=== PATIENT | male | born 1970 | race Caucasian/White ===

== ENCOUNTER 2017-11-20 08:54 | Outpatient (CLI) | payer MEDICARE ==
--- NOTE | 2017-11-20 12:21 | CT ---
NONCONTRAST ENHANCED CT IMAGES OF THE ABDOMEN AND PELVIS: History: Mass like protrusion, right mid sternum. Oral contrast was given. IV contrast was not given. Patient has a history of heart transplant in June 2016. FINDINGS: The lung bases are unremarkable. No evidence of free intraperitoneal air is seen. A left inguinal hernia is seen. The liver and spleen are unremarkable. Areas of hyperdensity seen in the gallbladder compatible with gallstones. No dilated loops of small bowel seen. The colon contains a moderate amount of stool without evidence of obstruction. NO definite evidence of intraabdominal mass lesions seen. There is some intraperitoneal fat extending into the substernal region of the mid anterior abdominal wall. Nonobstructing 2 mm upper and lower pole left renal calculi are present. IMPRESSION: 1. Small gallstones noted. 2. Left inguinal hernia. 3. No other significant intraabdominal or pelvic abnormality seen. 4. 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 POS: [facility]
== END 2017-11-20 08:55 | disposition home or self-care (01) ==
LOC: SCSCT 08:54
PROVIDERS: ATTEND Surgery
DX: R19.00 Intra-abdominal and pelvic swelling, mass and lump, unspecified site (principal); K80.80 Other cholelithiasis without obstruction; K40.90 Unilateral inguinal hernia, without obstruction or gangrene, not specified as recurrent
CPT/HCPCS: 74176

== ENCOUNTER 2018-01-25 04:40 | Emergency (ER) | payer MEDICARE ==
[2018-01-25 05:31] LABS: Bilirubin Negative (Negative); Blood, Urine Negative (Negative); Clarity Clear (Clear); Glucose, Urine (Dipstick) Negative (Negative); Leukocyte Negative (Negative); Nitrite Negative (Negative); Protein, Urine (Dipstick) Negative (Neg-Trace); Urobilinogen 0.2 mg/dL (0.2-1.0); pH, Urine 5.5 (5.0-9.0)
[2018-01-25 05:32] LABS: Specific Gravity, Urine 1.028 (1.002-1.036)
[2018-01-25 05:37] LABS: #Basophils 0.1 thou/uL (0.0-0.2); #Eosinphils 0.1 thou/uL (0.0-0.7); #Lymphocytes 0.7 thou/uL (1.20-3.40); #Monocytes 0.4 thou/uL (0.11-0.59); %Basophils 0.9 % (0.0-1.0); %Eosinophils 1.1 % (0.0-10.0); %Monocytes 4.9 % (0.0-10.0); %Neutrophils 84.2 % (42.0-75.0); Hemoglobin 15.9 g/dL (14.0-18.0); Mean Corpuscular HGB CONC 35.7 g/dL (32.0-36.0); Mean Corpuscular Hemoglobin 31.2 pg (27.0-31.0); Mean Corpuscular Volume 87.4 fL (78.0-98.0); Mean Platelet Volume 8.8 fL (7.4-10.4); Platelet Count 143 thou/uL (130-400); RBC Distribution Width 11.4 % (11.5-14.5); Red Blood Cell (RBC) Count 5.09 mill/uL (4.70-6.10); White Blood Cell (WBC) Count 8.3 thou/uL (4.8-10.8)
[2018-01-25 05:48] LABS: ALT (SGPT) 27 U/L (8-55); AST (SGOT) 21 U/L (5-34); Alkaline Phosphatase 139 U/L (40-150); Anion Gap 11 mmol/L (10-20); BUN (Urea Nitrogen) 15 mg/dL (8.9-20.6); Bilirubin, Total 0.7 mg/dL (0.2-1.2); Calc. Creatinine Clearance 0 mL/min (70-130); Calcium 9.5 mg/dL (7.8-10.44); Carbon Dioxide 24 mmol/L (22-29); Chloride 109 mmol/L (98-107); Estimated GFR-MDRD 84; Globulin 2.4 g/dL (2.4-3.5); Glucose 107 mg/dL (70-105); Potassium 3.7 mmol/L (3.5-5.1); Protein, Total 6.4 g/dL (6.0-8.3); Sodium 140 mmol/L (136-145)
--- NOTE | 2018-01-25 07:45 | RAD ---
TWO VIEWS OF THE CHEST: DATE: 01/25/18. COMPARISON: 01/07/09. HISTORY: Sore throat, ear pain, nasal congestion, and cough. FINDINGS: Midline sternotomy wires are present. There is no pneumothorax or pleural fluid and no focal consoli dation or alveolar edema. IMPRESSION: No acute findings. POS: [facility]
== END 2018-01-25 06:25 | disposition home or self-care (01) ==
LOC: SCSER 04:40
DX: R05 Cough (principal); R09.81 Nasal congestion; E78.5 Hyperlipidemia, unspecified; I42.9 Cardiomyopathy, unspecified; I10 Essential (primary) hypertension; M10.9 Gout, unspecified; J45.909 Unspecified asthma, uncomplicated; F41.9 Anxiety disorder, unspecified; F31.9 Bipolar disorder, unspecified; Z87.891 Personal history of nicotine dependence; Z79.899 Other long term (current) drug therapy
CPT/HCPCS: 71046; 80053; 81003; 85025; 87070; 87205; 87804; 93005

== ENCOUNTER 2018-05-16 08:25 | Emergency (ER) | payer MEDICARE | END 2018-05-16 09:00 | disposition home or self-care (01) | LOC: SCSER 08:25 | DX: L25.9 Unspecified contact dermatitis, unspecified cause (principal); E78.5 Hyperlipidemia, unspecified; I11.0 Hypertensive heart disease with heart failure; I50.9 Heart failure, unspecified; J45.909 Unspecified asthma, uncomplicated; F31.9 Bipolar disorder, unspecified; F41.9 Anxiety disorder, unspecified; Z87.891 Personal history of nicotine dependence; Z79.899 Other long term (current) drug therapy; Z79.82 Long term (current) use of aspirin | CPT/HCPCS: 99282 ==

== ENCOUNTER 2018-09-06 12:54 | Emergency (ER) | payer MEDICARE, OTHER | END 2018-09-06 13:25 | disposition home or self-care (01) | LOC: SCSER 12:54 | DX: S61.253A Open bite of left middle finger without damage to nail, initial encounter (principal); S61.255A Open bite of left ring finger without damage to nail, initial encounter; I11.0 Hypertensive heart disease with heart failure; I50.9 Heart failure, unspecified; M10.9 Gout, unspecified; J45.909 Unspecified asthma, uncomplicated; F41.9 Anxiety disorder, unspecified; F31.9 Bipolar disorder, unspecified; Z87.891 Personal history of nicotine dependence; W54.0XXA Bitten by dog, initial encounter | CPT/HCPCS: 99283 ==

== ENCOUNTER 2018-09-14 10:49 | Emergency (ER) | payer MEDICARE, OTHER | END 2018-09-14 12:14 | disposition home or self-care (01) | LOC: SCSER 10:49 | DX: S61.253D Open bite of left middle finger without damage to nail, subsequent encounter (principal); I11.0 Hypertensive heart disease with heart failure; I50.9 Heart failure, unspecified; M10.9 Gout, unspecified; J45.909 Unspecified asthma, uncomplicated; K58.9 Irritable bowel syndrome, unspecified; F41.9 Anxiety disorder, unspecified; F31.9 Bipolar disorder, unspecified; F17.220 Nicotine dependence, chewing tobacco, uncomplicated; W54.0XXD Bitten by dog, subsequent encounter | CPT/HCPCS: 99283 ==

== ENCOUNTER 2018-12-05 11:56 | Observation (INO) | payer MEDICARE, OTHER ==
[2018-12-05 12:59] LABS: #Basophils 0.1 thou/uL (0.0-0.2); #Eosinphils 0.2 thou/uL (0.0-0.7); #Lymphocytes 1.1 thou/uL (1.20-3.40); #Monocytes 0.5 thou/uL (0.11-0.59); #Neutrophils 3.6 thou/uL (1.40-6.50); %Eosinophils 3.8 % (0.0-10.0); %Lymphocytes 19.8 % (21.0-51.0); %Monocytes 8.5 % (0.0-10.0); %Neutrophils 65.9 % (42.0-75.0); Hemoglobin 14.6 g/dL (14.0-18.0); Mean Corpuscular HGB CONC 33.2 g/dL (32.0-36.0); Mean Corpuscular Hemoglobin 28.5 pg (27.0-31.0); Mean Corpuscular Volume 85.7 fL (78.0-98.0); Mean Platelet Volume 7.9 fL (7.4-10.4); Platelet Count 203 thou/uL (130-400); RBC Distribution Width 11.3 % (11.5-14.5); Red Blood Cell (RBC) Count 5.12 mill/uL (4.70-6.10); White Blood Cell (WBC) Count 5.4 thou/uL (4.8-10.8)
[2018-12-05 13:09] LABS: ALT (SGPT) 52 U/L (8-55); AST (SGOT) 32 U/L (5-34); Albumin 3.9 g/dL (3.5-5.0); Alkaline Phosphatase 194 U/L (40-150); Anion Gap 11 mmol/L (10-20); BUN (Urea Nitrogen) 13 mg/dL (8.9-20.6); Bilirubin, Total 0.4 mg/dL (0.2-1.2); Calc. Creatinine Clearance 0 mL/min (70-130); Calcium 9.1 mg/dL (7.8-10.44); Carbon Dioxide 24 mmol/L (22-29); Chloride 109 mmol/L (98-107); Estimated GFR-MDRD 84; Globulin 2.8 g/dL (2.4-3.5); Glucose 96 mg/dL (70-105); Potassium 4.3 mmol/L (3.5-5.1); Protein, Total 6.7 g/dL (6.0-8.3); Sodium 140 mmol/L (136-145)
[2018-12-05] MEDS ORDERED: Clindamycin/D5W 900 mg/50 ml Premix Bag ONE (13:13)
[2018-12-05] MEDS ORDERED: Piperacillin/Tazobactam 4.5 GM VIAL ONE (14:09)
[2018-12-05] MEDS ORDERED: Sodium Chloride 0.9% 100 ML ONE (14:10)
[2018-12-05] MEDS ORDERED: Ondansetron ODT 4 MG TAB SL PRN (15:49)
[2018-12-05] MEDS ORDERED: Ondansetron PF 4 MG/2 ML Vial IVP PRN (15:49)
[2018-12-05] MEDS ORDERED: HYDROcodone/Acetaminophen 5/325 mg Tablet PO PRN ×2 (15:49)
[2018-12-05] MEDS ORDERED: Vancomycin HCl 1.25 GM in Sodium Chloride 0.9% 250 ML 250 ML IVPB SCH (16:00)
[2018-12-05 16:06] VITALS: BMI 29.6
[2018-12-05] MEDS ORDERED: Niacin 500 MG TAB PO SCH (17:45)
[2018-12-05] MEDS ORDERED: Magnesium Chloride 64 MG TAB PO SCH (17:45)
[2018-12-05] MEDS ORDERED: Calcium Carbonate + Vit D 1 TAB PO SCH (17:45)
--- NOTE | 2018-12-05 18:26 | PDOC.FPRHP ---
- History of Present Illness Chief Complaint: R. below knee infection History of Present Illness: 48 yo Caucasion M comes in with R. below knee infection. States he bumped or possibly cut right below his R. knee 3-4 days ago. Says he noticed some redness and swelling. States he has just been watching it. He was already taking penicillin abx for a tooth infection but states it never got better. Noticed it being hot to the touch. Denies any fever or chills. Denies any n/v/d/c. Pt reports having hx of gout and getting in the knees but reports this is different. Pt came in because he had heart transplant a few years ago and didn' t want anything to effect his heart. - Allergies/Adverse Reactions Allergies Allergy/AdvReac Type Severity Reaction Status Date / Time iodine Allergy Severe ITCHING, Verified 12/05/18 16:13 THROAT SWELLING Sulfa (Sulfonamide Allergy Severe RASH, Verified 12/05/18 16:13 Antibiotics) THROAT SWELLING - Home Medications Medication Instructions Recorded Confirmed Type Aspirin [Aspirin EC] 81 mg PO DAILY 01/08/15 12/05/18 History FLUoxetine HCl 80 mg PO DAILY 01/08/15 12/05/18 History Atorvastatin Calcium 80 mg PO QPM 05/21/15 12/05/18 History Alendronate Sodium 1 tab PO Q7DAYS 12/05/18 12/05/18 History Allopurinol 1 tab PO DAILY 12/05/18 12/05/18 History Calcium Citrate/Vitamin D3 1 each PO BID- 12/05/18 12/05/18 History [Calcium Cit 315-Vit D3 200 Cpt] Magnesium Chloride [Slow-Mag] 2 tab PO BID- 12/05/18 12/05/18 History Niacinamide [Niacin] 500 mg PO BID- 12/05/18 12/05/18 History OXcarbazepine [Oxcarbazepine] 0.5 tab PO BID 12/05/18 12/05/18 History Pantoprazole [Protonix] 40 mg PO DAILY 12/05/18 12/05/18 History Sirolimus 2 tab PO DAILY 12/05/18 12/05/18 History Tacrolimus [Prograf] 2 cap PO QAM 12/05/18 12/05/18 History Tacrolimus [Prograf] 3 cap PO QPM 12/05/18 12/05/18 History - History PMHx: Depression, HLD, HTN, Asthma, Gout, Heart Transplant recipient on immunosuppresion PSHx: Heart Transplant (2017), Past heart surgeries related to old heart due to CHF FHx: Dad- CHF, ESRD Social: Quit smoking 10 yrs ago, smoked 1ppd for 10 years. Denies any recent alcohol use. Denies any illicit drug use - Review of Systems General: denies: fever/chills, weight/appetite/sleep changes, night sweats, fatigue Eyes: denies: vision changes ENT: denies: nasal congestion, rhinorrhea Respiratory: denies: cough, shortness of breath, exercise intolerance Cardiovascular: denies: chest pain, palpitation, edema, orthopnea Gastrointestinal: denies: nausea, vomiting, diarrhea, constipation, abdominal pain Genitourinary: denies: dysuria, polyuria Skin: reports: rashes, lesions. denies: itching Musculoskeletal: reports: pain, swelling. denies: tenderness, stiffness Neurological: denies: numbness, weakness Psychological: reports: depression. denies: anxiety - Vital signs BP: [128/83] HR: [82] RR: [14] Tmax: [98] Pox: [97]% on [RA] Wt: [88 kg] - Physical Exam Constitutional: NAD, awake, alert and oriented, well developed HEENT: normocephalic and atraumatic, grossly normal vision, grossly normal hearing, MMM Neck: supple, no LAD, no JVD, no thyromegaly Heart: RRR, normal S1/S2, no murmurs/rubs/gallops, pulses present, no edema Lungs: CTAB, no respiratory distress, good air movement, no wheezing, no retractions Abdomen: soft, non-tender, bowel sounds present, no masses/distention Musculoskeletal: normal structure, normal tone, ROM grossly normal Neurological: no focal deficit, normal sensation -Skin: Small red sit on lateral R LE right below the knee. It is mildly swollen and hot to the touch. Mildly painful to palpation. Area marked with marking pen and no sign of spread at this time. Heme/Lymphatic: no unusual bruising or bleeding, no petechia Psychiatric: normal mood and affect, good judgment and insight FMR H&P: Results - Labs Result Diagrams: 12/06/18 04:51 12/05/18 12:50 Lab results: WBC 5.4 thou/uL (4.8-10.8) 12/05/18 12:50 Hgb 14.6 g/dL (14.0-18.0) 12/05/18 12:50 Hct 43.9 % (42.0-52.0) 12/05/18 12:50 MCV 85.7 fL (78.0-98.0) 12/05/18 12:50 Plt Count 203 thou/uL (130-400) 12/05/18 12:50 Neutrophils % 65.9 % (42.0-75.0) 12/05/18 12:50 Sodium 140 mmol/L (136-145) 12/05/18 12:50 Potassium 4.3 mmol/L (3.5-5.1) 12/05/18 12:50 Chloride 109 mmol/L (98-107) H 12/05/18 12:50 Carbon Dioxide 24 mmol/L (22-29) 12/05/18 12:50 BUN 13 mg/dL (8.9-20.6) 12/05/18 12:50 Creatinine 0.95 mg/dL (0.7-1.3) 12/05/18 12:50 Glucose 96 mg/dL (70-105) 12/05/18 12:50 Lactic Acid 1.1 mmol/L (0.5-2.2) 12/05/18 12:50 Calcium 9.1 mg/dL (7.8-10.44) 12/05/18 12:50 Total Bilirubin 0.4 mg/dL (0.2-1.2) 12/05/18 12:50 AST 32 U/L (5-34) 12/05/18 12:50 ALT 52 U/L (8-55) 12/05/18 12:50 Alkaline Phosphatase 194 U/L (40-150) H 12/05/18 12:50 Serum Total Protein 6.7 g/dL (6.0-8.3) 12/05/18 12:50 Albumin 3.9 g/dL (3.5-5.0) 12/05/18 12:50 FMR H&P: A/P - Problem List (1) Cellulitis Current Visit: Yes Status: Acute Code(s): L03.90 - CELLULITIS, UNSPECIFIED Qualifiers: Site of cellulitis: extremity Laterality: right (2) Chronic gouty arthritis Current Visit: No Status: Chronic Code(s): M1A.00X0 - IDIOPATHIC CHRONIC GOUT, UNSPECIFIED SITE, WITHOUT TOPHUS (3) History of - depression Current Visit: No Status: Chronic Code(s): Z86.59 - PERSONAL HISTORY OF OTHER MENTAL AND BEHAVIORAL DISORDERS (4) Heart transplant recipient Current Visit: Yes Status: Chronic Code(s): Z94.1 - HEART TRANSPLANT STATUS - Plan Cellulitis of R. Leg -Continue Vanc and Clindamycin for IV abx coverage at this time. No sign of abscess. -VS stable. CBC normal. Repeat AM CBC. - Site is marked. Will trend to make sure infection not spreading. -Blood cx pending Heart Transplant Recepient -Home immunosupppresion meds continued -On tele monitoring -IV abx for now for infection to help prevent infective endocarditis HLD -continue home meds HTN -continue home meds Hx Gout -continue home meds -Area of swelling not in joint. Does not appear to be gout. DVT ppx: SCD's GERD ppx: Tums FMR H&P: Upper Level - Plan Date/Time: 12/05/18 2063 I, [], have evaluated this patient and agree with findings/plan as outlined by international marketing manager resident. Pertinent changes/additions are listed here. Addendum - Attending - Attending Attestation Date/Time: 12/06/18 1228 I personally evaluated the patient and discussed the management with Dr. Moctezuma on 12/05/2018 I agree with the History, Examination, Assessment and Plan documented above with any addition or exceptions noted below - 48 yo male with h/o HLD, HTN, asthma, gout and heart transplant secondary to cardiomyopathy presents c/o area of redness, pain on left lateral lower leg below knee. States taht he first noticed it about 1 week ago and has progressively increased in size. States that he has been on PCN for tooth infection without improvement in area of redness. Denies any fever/chills/N/V/D. Denies any drainage from area. Does not recall any injury or insect bites to area. PMH/PSH/Meds/All reviewed and agree with resident' s documentation. T98.0 P82 BP128/83 RR14 Exam repeated by me and agree with resident's findings. Labs: WBC=5.4, H/H=14.6/43.9, ki=629, K=4.3 , BUN/Cr=13/0.95 A/P: 1) Cellulitis- Place in obs. Continue Vanc and Clinda. 2) Heart transplant- continue home meds.
[2018-12-05] MEDS ORDERED: Atorvastatin Calcium 40 MG TAB PO SCH (21:00)
[2018-12-05] MEDS ORDERED: Tacrolimus 0.5 MG CAP PO SCH (21:00)
[2018-12-05] MEDS ORDERED: Clindamycin/D5W 900 MG in Premix Bag 1 BAG IVPB SCH (22:00)
[2018-12-05] MEDS ORDERED: Piperacillin/Tazobactam 4.5 GM in Sodium Chloride 0.9% 100 ML IVPB SCH (22:00)
[2018-12-05] MEDS ORDERED: Ibuprofen 800 MG TAB PO PRN (23:16)
[2018-12-05] MEDS: OXcarbazepine 300 MG TAB PO SCH (23:54)
[2018-12-06] MEDS ORDERED: Melatonin 3 MG TAB PO PRN (00:40)
[2018-12-06 05:23] LABS: #Basophils 0.1 thou/uL (0.0-0.2); #Eosinphils 0.3 thou/uL (0.0-0.7); #Lymphocytes 1.4 thou/uL (1.20-3.40); #Monocytes 0.6 thou/uL (0.11-0.59); #Neutrophils 2.7 thou/uL (1.40-6.50); %Basophils 1.2 % (0.0-1.0); %Eosinophils 5.2 % (0.0-10.0); %Lymphocytes 28.5 % (21.0-51.0); %Monocytes 10.9 % (0.0-10.0); %Neutrophils 54.2 % (42.0-75.0); Hemoglobin 15.2 g/dL (14.0-18.0); Mean Corpuscular HGB CONC 33.9 g/dL (32.0-36.0); Mean Corpuscular Hemoglobin 29.5 pg (27.0-31.0); Mean Corpuscular Volume 87.1 fL (78.0-98.0); Mean Platelet Volume 7.9 fL (7.4-10.4); Platelet Count 175 thou/uL (130-400); RBC Distribution Width 11.3 % (11.5-14.5); Red Blood Cell (RBC) Count 5.14 mill/uL (4.70-6.10); White Blood Cell (WBC) Count 5.1 thou/uL (4.8-10.8)
--- NOTE | 2018-12-06 06:04 | PDOC.FM ---
- Subjective Subjective: Pt is much improved this morning. Slept well without any acute events overnight. He states his right leg is much improved, much less warm and less TTP. Still endorses mild pain on hard palpation but able to ambulate without difficulty. He does have history of gout but states this pain is different from his gouty pain. No fevers/chills, CP, SOB, n/v/d/c overnight. He is eager to be discharged home later today. - Objective MAR Reviewed: Yes Vital Signs & Weight: Vital Signs (12 hours) Temp Pulse Resp BP Pulse Ox 12/06/18 04:55 97.6 F 83 20 117/79 94 L 12/06/18 01:22 97.8 F 84 16 125/81 95 12/05/18 19:43 98.3 F 85 16 121/73 94 L Weight Weight 87.589 kg I&O: 12/04/18 12/05/18 12/06/18 06:59 06:59 06:59 Intake Total 942 Balance 942 Result Diagrams: 12/06/18 04:51 12/05/18 12:50 Phys Exam - Physical Examination Constitutional: NAD HEENT: moist MMs Respiratory: no wheezing, no rales, no rhonchi, clear to auscultation bilateral Cardiovascular: RRR, no significant murmur, no rub Gastrointestinal: soft, non-tender, no distention, positive bowel sounds Musculoskeletal: no edema, pulses present Neurological: non-focal, moves all 4 limbs Psychiatric: normal affect Deviation from normal: 2cm area of erythema and mild TTP on right leg below the knee. No exudates -: Area of erythema at admit marked and now significantly reduced. Dx/Plan (1) Cellulitis Code(s): L03.90 - CELLULITIS, UNSPECIFIED Status: Acute Qualifiers: Site of cellulitis: extremity Laterality: right (2) Heart transplant recipient Code(s): Z94.1 - HEART TRANSPLANT STATUS Status: Chronic (3) Chronic gouty arthritis Code(s): M1A.00X0 - IDIOPATHIC CHRONIC GOUT, UNSPECIFIED SITE, WITHOUT TOPHUS Status: Chronic (4) History of - depression Code(s): Z86.59 - PERSONAL HISTORY OF OTHER MENTAL AND BEHAVIORAL DISORDERS Status: Chronic - Plan Plan: 48yo M with h/o cardiac transplant 2/2 CHF who presents with cellulitis of right leg. Cellulitis of R. Leg - Vanc and Clindamycin in ED. No sign of abscess. Will Give Clinda and Vanc dose this AM and then transition to PO Clinda to anticipate afternoon discharge. - VS stable, a febrile. CBC and CMP WNL, WBC stable at 5 - Site is marked. Significantly reduced erythema this morning. Able to ambulate. - Blood cx NGTD Heart Transplant Recepient - Continue Home immunosupppresion meds and ASA. - On tele monitoring, no acute events overnight. HLD - continue home Niacin and Atorva H/o Depression - continue home Prozac and oxcarbazepine Hx Gout - continue home allopurinol - Area of swelling not in joint. Does not appear to be gout. DVT ppx: SCD's GERD ppx: Tums Diet: Code: Full Dispo: Pending clinical improvement and transition to PO anx. Anticipate discharge this PM.
[2018-12-06] MEDS ORDERED: Niacin 500 MG TAB PO SCH (08:00)
[2018-12-06] MEDS ORDERED: Calcium Carbonate + Vit D 1 TAB PO SCH (08:00)
[2018-12-06] MEDS ORDERED: Magnesium Chloride 64 MG TAB PO SCH (08:00)
[2018-12-06] MEDS: OXcarbazepine 300 MG TAB PO SCH (08:25)
[2018-12-06 08:28] LABS: Magnesium 1.9 mg/dL (1.6-2.6)
[2018-12-06] MEDS ORDERED: Vancomycin HCl 1.25 GM in Sodium Chloride 0.9% 250 ML 250 ML IVPB SCH (09:00)
[2018-12-06] MEDS ORDERED: FLUoxetine HCl 20 MG CAP PO SCH (09:00)
[2018-12-06] MEDS ORDERED: Allopurinol 100 MG TAB PO SCH (09:00)
[2018-12-06] MEDS ORDERED: Tacrolimus 0.5 MG CAP PO SCH (09:00)
[2018-12-06] MEDS ORDERED: Clindamycin/D5W 900 MG in Premix Bag 1 BAG IVPB SCH ×2 (09:00→14:00)
[2018-12-06] MEDS ORDERED: Aspirin 81 mg Enteric Coated Tablet PO SCH (09:00)
[2018-12-06] MEDS ORDERED: Clindamycin 150 MG CAP PO SCH (11:00)
--- NOTE | 2018-12-06 11:47 | PRG ---
DATE OF SERVICE: 12/06/2018 Mr. Bernabe is a pleasant 48-year-old man with a history of a heart transplant. He developed mild cellulitis on his right knee and was admitted for IV antibiotics. Already, he has markedly improved and will be discharged on oral medications. Job ID: [id number]
[2018-12-06 13:04] VITALS: BP 126/86; TEMP 97.3
--- NOTE | 2018-12-06 13:36 | DIS ---
DATE OF ADMISSION: 12/05/2018 DATE OF DISCHARGE: 12/06/2018 RESIDENT: Dr. Desmond Murphy. ADMITTING ATTENDING: Dr. Aleida Tyson. DISCHARGE ATTENDING: Dr. Juan Kim. CONSULTS: None. PROCEDURES: None. PRIMARY DIAGNOSIS: Cellulitis of right lower extremity. SECONDARY DIAGNOSES: 1. Status post heart transplant for congestive heart failure. 2. Gout. 3. Hyperlipidemia. 4. Depression. DISCHARGE MEDICATIONS: 1. Clindamycin 300 mg p.o. q.6 hours for 6 days. 2. Prozac 80 mg p.o. daily. 3. Aspirin 81 mg p.o. daily. 4. Atorvastatin 80 mg p.o. q.p.m. 5. Fosamax 70 mg p.o. every 7 days. 6. Allopurinol 100 mg p.o. daily. 7. Oxcarbazepine 150 mg p.o. b.i.d. 8. Protonix 40 mg p.o. daily. 9. Sirolimus 2 mg p.o. daily. 10. Prograf 1.5 mg p.o. q.p.m. and 1 mg p.o. q.a.m. 11. Slow-Mag 64 mg two tabs b.i.d. 12. Calcium and vitamin D supplement 1 tab b.i.d. 13. Niacin 500 mg p.o. b.i.d. DISCONTINUED MEDICATIONS: None. HISTORY OF PRESENT ILLNESS AND HOSPITAL COURSE: The patient is a 48-year-old male with history of heart transplant, who presented with infection of the right leg below the knee. He states that he bumped, possibly cut his leg, but does not remember a specific trauma approximately a week ago as he noticed some redness and swelling and he had been watching it. He said he had been taking penicillin for a dental procedure and thus continued taking the penicillin, but it did not improve his wound. He notes that it was warm to the touch and that the erythema had been spreading. He denied any fevers or chills. No nausea, vomiting, diarrhea, or constipation. The patient does have a known history of gout; however, he states that this pain is different than that. He presented to the ED because he has this history of heart transplant a few years ago and did not want anything to affect his heart. He currently is taking his immunosuppressants as prescribed. In the ED , he was given a dose of Zosyn, vancomycin, and clindamycin. He was then admitted to the floor for evaluation and management primarily due to his cardiac history. Once on the floor, he was continued on vancomycin and clindamycin. Overnight, the patient did well, without any acute events. The patient notes that the warmth had pretty much completely resolved and that the erythema previously demarcated in the ED has substantially receded to an area of approximately 1 to 2 cm below the right knee. The patient was then transitioned to p.o. clindamycin for anticipation of discharge. His Vitals remained stable overnight and throughout the morning. The patient was eager to go home and voiced understanding and agreement of the discharge plan, and to follow up with primary care physician within 1 week. The patient will continue a total of 7-day course of clindamycin as an outpatient. Signs and symptoms warrant to return to the emergency department or to seek further medical care were discussed with the patient. The patient voiced agreement and understanding. The patient was then discharged home. DISCHARGE INSTRUCTIONS: 1. Location, home. 2. Diet, heart healthy. 3. Activity, as tolerated. 4. Followup: The patient should follow up with primary care physician within 1 week of discharge. Job ID: [id number] [facility]
[2018-12-06] MEDS ORDERED: Prevnar 13-Val Conj/PF 0.5 ML SYRINGE IM ONE (16:30)
[2018-12-12] MEDS ORDERED: Alendronate Sodium 70 mg Tablet PO SCH (09:00)
== END 2018-12-06 13:24 | disposition home or self-care (01) ==
LOC: SCSER 11:56 → 2SW 15:35
PROVIDERS: ADMIT Family Medicine; ATTEND Family Medicine
DX: L03.115 Cellulitis of right lower limb (principal); M1A.00X0 Idiopathic chronic gout, unspecified site, without tophus (tophi); F32.9 Major depressive disorder, single episode, unspecified; I10 Essential (primary) hypertension; E78.5 Hyperlipidemia, unspecified; Z79.82 Long term (current) use of aspirin; Z79.899 Other long term (current) drug therapy; Z88.2 Allergy status to sulfonamides; Z91.041 Radiographic dye allergy status; Z94.1 Heart transplant status
CPT/HCPCS: 80053; 83605; 83735; 84100; 85025 ×2; 87040; 87149 ×2; 96361; 96365; 96366; 96367; 96375; 96376; 99284; G0378 ×3; J7520; 36415; J2543; J3370; J3490; J7050; J7507

== ENCOUNTER 2019-01-31 23:16 | Inpatient (IN) | payer MEDICARE, OTHER ==
[2019-01-31] MEDS ORDERED: Ondansetron PF 4 MG/2 ML Vial ONE (23:36)
[2019-01-31] MEDS ORDERED: Morphine 4 MG/ML VIAL ONE (23:36)
[2019-01-31 23:54] LABS: #Basophils 0.1 thou/uL (0.0-0.2); #Eosinphils 0.2 thou/uL (0.0-0.7); #Lymphocytes 1.3 thou/uL (1.20-3.40); #Monocytes 0.8 thou/uL (0.11-0.59); #Neutrophils 5.1 thou/uL (1.40-6.50); %Basophils 1.2 % (0.0-1.0); %Eosinophils 2.2 % (0.0-10.0); %Lymphocytes 17.2 % (21.0-51.0); %Monocytes 10.1 % (0.0-10.0); %Neutrophils 69.3 % (42.0-75.0); Hemoglobin 14.9 g/dL (14.0-18.0); Mean Corpuscular HGB CONC 34.2 g/dL (32.0-36.0); Mean Corpuscular Hemoglobin 28.3 pg (27.0-31.0); Mean Corpuscular Volume 82.8 fL (78.0-98.0); Platelet Count 238 thou/uL (130-400); RBC Distribution Width 12.5 % (11.5-14.5); Red Blood Cell (RBC) Count 5.26 mill/uL (4.70-6.10); White Blood Cell (WBC) Count 7.4 thou/uL (4.8-10.8)
--- NOTE | 2019-02-01 00:02 | CT ---
Exam: Abdomen CT without contrast Pelvic CT without contrast HISTORY: Right upper quadrant pain. COMPARISON: 11/20/2017 FINDINGS: Abdomen CT: Lung bases:Clear Heart size: Normal heart size. No significant pericardial fluid Aorta: Normal caliber. Minimal atherosclerosis. No periaortic fat stranding. Solid organs: Limited evaluation due to the lack of IV contrast. 0.7 cm hypodensity in the posterior segment of the liver, unchanged. Grossly no solid organ abnormality Lymph nodes: No gastrohepatic, retrocrural or periportal lymphadenopathy Gallbladder: Contracted. CT evidence of cholelithiasis without evidence of cholecystitis Mesentery: No mass, lymphadenopathy, free air or free fluid. Scattered nonspecific, nonenlarged lymph nodes. Findings are unchanged from previous CT Kidneys: Punctate nonobstructing 1 mm calculus in the left renal pelvis. Bilaterally no hydronephrosi s or perinephric fat stranding. Bilateral ureters have a normal caliber. No hydroureter, periureteral fat stranding or ureterolithiasis Alimentary canal: Limited evaluation due to lack of oral contrast. No evidence of small bowel obstruc tion. Ileocecal junction is normal. Normal caliber appendix. Scattered fecal material in a nondistended, nondilated colon. Diverticulosis in the proximal descending colon. No evidence of diver ticulitis. CT PELVIS: No mass, adenopathy, free air or free fluid. Urinary bladder: Unremarkable. Stable left inguinal hernia. Osseous structures: Bilateral pars defects at L5. No significant associated spondylolisthesis. IMPRESSION: 1. No evidence of bowel obstruction. 2. Normal caliber appendix 3. No evidence of obstructive uropathy. 4. Contracted gallbladder with small gallstones. No CT evidence of cholecystitis.
[2019-02-01 00:08] LABS: ALT (SGPT) 40 U/L (8-55); AST (SGOT) 28 U/L (5-34); Alkaline Phosphatase 196 U/L (40-110); Anion Gap 13 mmol/L (10-20); BUN (Urea Nitrogen) 15 mg/dL (8.9-20.6); Bilirubin, Total 0.4 mg/dL (0.2-1.2); Calc. Creatinine Clearance 0 mL/min (70-130); Calcium 9.5 mg/dL (7.8-10.44); Carbon Dioxide 25 mmol/L (22-29); Chloride 107 mmol/L (98-107); Estimated GFR-MDRD 77; Globulin 3.3 g/dL (2.4-3.5); Glucose 114 mg/dL (70-105); Lipase 429 U/L (8-78); Potassium 3.9 mmol/L (3.5-5.1); Protein, Total 7.3 g/dL (6.0-8.3); Sodium 141 mmol/L (136-145)
[2019-02-01] MEDS ORDERED: Morphine 4 MG/ML VIAL ONE (01:00)
[2019-02-01 01:56] LABS: Bilirubin Negative (Negative); Blood, Urine Negative (Negative); Clarity Clear (Clear); Glucose, Urine (Dipstick) Negative (Negative); Leukocyte Negative (Negative); Nitrite Negative (Negative); Protein, Urine (Dipstick) Negative (Neg-Trace); Urobilinogen 0.2 mg/dL (Less than 2)
[2019-02-01] MEDS ORDERED: Ondansetron ODT 4 MG TAB SL PRN (02:23)
[2019-02-01] MEDS ORDERED: Sodium Chloride 0.9% 1,000 ML IV SCH (02:23)
[2019-02-01] MEDS ORDERED: Ondansetron PF 4 MG/2 ML Vial IVP PRN (02:23)
[2019-02-01] MEDS ORDERED: Morphine 4 MG/ML VIAL SLOW IVP PRN (02:25)
[2019-02-01 02:47] VITALS: BMI 29.2
[2019-02-01] MEDS ORDERED: Acetaminophen 325 MG TAB PO PRN (03:50)
--- NOTE | 2019-02-01 04:09 | PDOC.FPRHP ---
- History of Present Illness Chief Complaint: abdominal pain History of Present Illness: Patient is a 48M with PMHx of HTN, HLD, gout, colitis, migraines, bipolar, and CHF s/p heart transplant that presented to the [facility] ED after 3-4 days of abdominal pain. The patient describes the pain and sharp, constant, and mid-epigastric. He states that his appetite has decreased the last several days due to the pain, and he has had diarrhea since the pain onset. He also reports emesis that began yesterday. He states that this has never happened to him before. He reports that he was a heavy drinker 10 years ago, but hasn't had a drink or smoked cigarettes since. He denies any cp or sob. ED Course: Received 4mg morphine x 2, zofran, NS x 2 - Allergies/Adverse Reactions Allergies Allergy/AdvReac Type Severity Reaction Status Date / Time iodine Allergy Severe ITCHING, Verified 02/01/19 02:29 THROAT SWELLING Sulfa (Sulfonamide Allergy Severe RASH, Verified 02/01/19 02:29 Antibiotics) THROAT SWELLING - Home Medications Medication Instructions Recorded Confirmed Type Aspirin [Aspirin EC] 81 mg PO DAILY 01/08/15 02/01/19 History FLUoxetine HCl 80 mg PO DAILY 01/08/15 02/01/19 History Atorvastatin Calcium 80 mg PO QPM 05/21/15 02/01/19 History Alendronate Sodium 1 tab PO Q7DAYS 12/05/18 02/01/19 History Allopurinol 1 tab PO DAILY 12/05/18 02/01/19 History Calcium Citrate/Vitamin D3 1 each PO BID- 12/05/18 02/01/19 History [Calcium Cit 315-Vit D3 200 Cpt] Magnesium Chloride [Slow-Mag] 2 tab PO BID- 12/05/18 02/01/19 History Niacinamide [Niacin] 500 mg PO BID- 12/05/18 02/01/19 History OXcarbazepine [Oxcarbazepine] 0.5 tab PO BID 12/05/18 02/01/19 History Pantoprazole [Protonix] 40 mg PO DAILY 12/05/18 02/01/19 History Sirolimus 2 tab PO DAILY 12/05/18 02/01/19 History Tacrolimus [Prograf] 2 cap PO BID 12/05/18 02/01/19 History Famotidine [Pepcid AC] 10 mg PO QID PRN 02/01/19 02/01/19 History Multivitamin [Multivitamins] 1 cap PO DAILY 02/01/19 02/01/19 History Potassium Chloride [K-Tab ER] 20 meq PO DAILY 02/01/19 02/01/19 History - History PMHx:PMHx of HTN, HLD, gout, colitis, migraines, bipolar, and CHF s/p heart transplant PSHx: heart transplant 2 years ago FHx: non-contributory Social: heavy drinker and smoker up until 10 years ago, when he quit; denies drug use - Review of Systems General: reports: weight/appetite/sleep changes. denies: night sweats Eyes: denies: eye pain, vision changes ENT: denies: nasal congestion, rhinorrhea Respiratory: denies: cough, congestion, shortness of breath Cardiovascular: denies: chest pain, palpitation Gastrointestinal: reports: nausea, vomiting, diarrhea, abdominal pain Genitourinary: denies: incontinence, dysuria Skin: denies: rashes, lesions Musculoskeletal: denies: pain, tenderness Neurological: denies: syncope, seizure Psychological: denies: anxiety, depression - Vital signs BP: [136/87] HR: [84] RR: [16] Tmax: [97.9] Pox: [95]% on [RA] Wt: [87.18kg] - Physical Exam Constitutional: NAD, awake, alert and oriented HEENT: no scleral icterus, grossly normal hearing Neck: supple, trachea midline Chest: no-tender to palpation, no lesions Heart: RRR, normal S1/S2 Lungs: CTAB, no respiratory distress, good air movement Abdomen: bowel sounds present, other (distended, difusely ttp) Musculoskeletal: normal structure, normal tone Neurological: no focal deficit, normal sensation Skin: no rash/lesions, good turgor Heme/Lymphatic: no unusual bruising or bleeding, no purpura Psychiatric: normal mood and affect, good judgment and insight FMR H&P: Results - Labs Result Diagrams: 02/01/19 04:12 02/01/19 04:12 Lab results: WBC 7.4 thou/uL (4.8-10.8) 01/31/19 23:41 Hgb 14.9 g/dL (14.0-18.0) 01/31/19 23:41 Hct 43.5 % (42.0-52.0) 01/31/19 23:41 MCV 82.8 fL (78.0-98.0) 01/31/19 23:41 Plt Count 238 thou/uL (130-400) 01/31/19 23:41 Neutrophils % 69.3 % (42.0-75.0) 01/31/19 23:41 Sodium 141 mmol/L (136-145) 01/31/19 23:41 Potassium 3.9 mmol/L (3.5-5.1) 01/31/19 23:41 Chloride 107 mmol/L (98-107) 01/31/19 23:41 Carbon Dioxide 25 mmol/L (22-29) 01/31/19 23:41 BUN 15 mg/dL (8.9-20.6) 01/31/19 23:41 Creatinine 1.03 mg/dL (0.7-1.3) 01/31/19 23:41 Glucose 114 mg/dL (70-105) H 01/31/19 23:41 Calcium 9.5 mg/dL (7.8-10.44) 01/31/19 23:41 Total Bilirubin 0.4 mg/dL (0.2-1.2) 01/31/19 23:41 AST 28 U/L (5-34) 01/31/19 23:41 ALT 40 U/L (8-55) 01/31/19 23:41 Alkaline Phosphatase 196 U/L (40-110) H 01/31/19 23:41 Serum Total Protein 7.3 g/dL (6.0-8.3) 01/31/19 23:41 Albumin 4.0 g/dL (3.5-5.0) 01/31/19 23:41 Lipase 429 U/L (8-78) H 01/31/19 23:41 Urine Ketones Negative mg/dL (Negative) 02/01/19 01:47 Urine Blood Negative (Negative) 02/01/19 01:47 Urine Nitrite Negative (Negative) 02/01/19 01:47 Ur Leukocyte Esterase Negative (Negative) 02/01/19 01:47 - Radiology Interpretation CT scan - abdomen Status: report reviewed by me (no evidence of bowel obstruction, normal caliber appendix, no evidence of obstructive uropathy, contracted gallbladder with small gallstones. No CT evidence of cholecystitis) FMR H&P: A/P - Problem List (1) Pancreatitis Current Visit: Yes Status: Acute Code(s): K85.90 - ACUTE PANCREATITIS WITHOUT NECROSIS OR INFECTION, UNSP (2) Bipolar disorder Current Visit: No Status: Chronic Code(s): F31.9 - BIPOLAR DISORDER, UNSPECIFIED (3) Chronic gouty arthritis Current Visit: No Status: Chronic Code(s): M1A.00X0 - IDIOPATHIC CHRONIC GOUT, UNSPECIFIED SITE, WITHOUT TOPHUS (4) Heart transplant recipient Current Visit: No Status: Chronic Code(s): Z94.1 - HEART TRANSPLANT STATUS (5) Systolic heart failure Current Visit: No Status: Chronic Priority: High Code(s): I50.20 - UNSPECIFIED SYSTOLIC (CONGESTIVE) HEART FAILURE Comment: Stopped BB, ACEI and diuretics - Plan Patient is a 48M with PMHx of HTN, HLD, gout, colitis, migraines, bipolar, and CHF s/p heart transplant that is being admitted for pancreatitis. #Pancreatitis -Lipase 429, continue to monitor -CT abdomen shows small stones in the gallbladder, not suspicious for cholecystitis -kenn score 0 -abdominal u/s pending -sx consult in -NPO, IVF -morphine for pain control #CHF s/p heart transplant -stable -denying cp or sob at this time -continue home meds #bipolar -stable, chronic -continue home meds #gout -stable, chronic -continue home meds #HTN -continue home meds #HLD -continue home meds Diet: NPO DVT ppx: lovenox Dispo: inpatient for pancreatitis management Code: Full FMR H&P: Upper Level - Pertinent history 48 yo M here as direct admit from [facility] ER with complaint of epigastric pain that has progressively worsened over the past 3-4 days. He has no hx of similar pain in the past. Pain is described as stabbing and without radiation. Pain is made worse by eating. Associated symptoms include non bloody vomiting and diarrhea. Imaging in the ED include a CT abd that found a contracted GB with stones. RUQ US read is currently pending. Labs included an elevated lipase and alk phos. Other significant medical hx includes heart transplant due to CHF apprx 2.5 years ago. PMHx GERD HTN s/p heart transplant Gout HLD MDD Questionable dx of BPD/schizophrenia Past surgical hx Heart transplant 06/2016 Social Hx Former smoker and etoh abuse Denies recreational drugs - Pertinent findings See risk intern note for full ROS, PE, vitals, and labs ROS General Denies fever or chills CV Denies CP or palpitation Resp Denies of SOB or cough GI Complains of abdominal pain and n/v/d. Denies blood in stool or vomit PE General A&O x4 HEENT NCAT, PERRLA CV RRR no murmur Resp CTA Abd epigastric tenderness. Normal BS x4 Neuro No focal deficits, normal strength - Plan Date/Time: 02/01/19 0409 I, Nicola Escalera, , have evaluated this patient and agree with findings/plan as outlined by risk intern resident. Pertinent changes/additions are listed here. 1.Pancreatitis -IVF at maintenance rate -IV Morphine PRN -NPO -Possibly related to gall stone pancreatitis. RUQ US pending. GS was consulted from ER. -BISAP score of 0/RANSONS score of 0, LDH pending 2.HTN -Home meds 3.Hx of heart transplant -Continue anti rejection meds 4.MDD -Home meds 5.BPD/schizophrenia -Per pt he has this dx, however he is not on a mood stabilizer or antipsychotic and is on SSRI which would be inconsistent with this dx. See risk intern note for management of other chronic problems PPx SCD Diet NPO Code Full Addendum - Attending - Attending Attestation Date/Time: 02/01/19 1027 I personally evaluated the patient and discussed the management with Dr. Vernon/ Lali. I agree with the History, Examination, Assessment and Plan documented above with any addition or exceptions noted below. Patient here with several days of abdominal pain characteristic of pancreatitis and lipase elevation suggestive of that diagnosis. His BISAP score is 0. He will continue on IV fluids and NPO, will escalate to CLD depending on symptoms later today. Surgery consulted by ED due to gallbladder abnormalities which could have resulted in his pancreatitis. He appears to be adequately fluid resuscitated. Await recs from surgery but overall treat as standard mild pancreatitis.
[2019-02-01 04:37] LABS: #Eosinphils 0.2 thou/uL (0.0-0.7); #Lymphocytes 1.3 thou/uL (1.20-3.40); #Monocytes 0.7 thou/uL (0.11-0.59); #Neutrophils 4.7 thou/uL (1.40-6.50); %Basophils 0.2 % (0.0-1.0); %Eosinophils 2.3 % (0.0-10.0); %Lymphocytes 18.5 % (21.0-51.0); Mean Corpuscular HGB CONC 34.5 g/dL (32.0-36.0); Mean Corpuscular Hemoglobin 29.3 pg (27.0-31.0); Mean Corpuscular Volume 84.9 fL (78.0-98.0); Mean Platelet Volume 7.7 fL (7.4-10.4); Platelet Count 202 thou/uL (130-400); RBC Distribution Width 12.3 % (11.5-14.5); Red Blood Cell (RBC) Count 4.78 mill/uL (4.70-6.10); White Blood Cell (WBC) Count 6.9 thou/uL (4.8-10.8)
[2019-02-01 05:00] LABS: Anion Gap 10 mmol/L (10-20); BUN (Urea Nitrogen) 12 mg/dL (8.9-20.6); Calc. Creatinine Clearance 124 mL/min (70-130); Calcium 8.6 mg/dL (7.8-10.44); Carbon Dioxide 26 mmol/L (22-29); Chloride 107 mmol/L (98-107); Estimated GFR-MDRD Greater than 90; Glucose 109 mg/dL (70-105); Lipase 266 U/L (8-78); Potassium 3.9 mmol/L (3.5-5.1); Sodium 139 mmol/L (136-145)
[2019-02-01] MEDS ORDERED: Famotidine 20 MG TAB PO PRN (05:07)
[2019-02-01] MEDS: Lactated Ringer's 1,000 ML IV SCH ×2 (05:18→12:23)
[2019-02-01] MEDS ORDERED: Morphine 2 MG/ML SYRINGE SLOW IVP PRN (07:10)
--- NOTE | 2019-02-01 07:49 | ULT ---
PRELIMINARY REPORT/[facility]/EMERGENCY AFTER HOURS PROCEDURE: PROCEDURE INFORMATION: Exam: US Abdomen Limited, Right Upper Quadrant Exam date and time: 02/01/2019 1:20 AM Clinical history: 48 years old, male; Nausea and vomiting and other: Diarrhea; Abdominal pain; Epigas tric TECHNIQUE: Imaging protocol: Real-time ultrasound of the abdomen with image documentation. Examination was focus ed on the right upper quadrant. COMPARISON: No relevant prior studies available. FINDINGS: Liver: Normal. No masses. Gallbladder: Cholelithiasis. No gallbladder wall thickening or pericholecystic fluid. Common bile duct: Normal. No stones. No dilation. Pancreas: Visualized pancreas is unremarkable. Right kidney: Normal. No mass. No hydronephrosis. IMPRESSION: Cholelithiasis. No cholecystitis. Thank you for allowing us to participate in the care of your patient. Dictated and Authenticated by: Chris Chin MD 02/01/2019 2:26 AM Central Time ([place] & [place]) FINAL REPORT EMERGENCY AFTER HOURS GALLBLADDER ULTRASOUND: I agree with the preliminary report provided by Rakan. POS: BH
[2019-02-01] MEDS ORDERED: Enoxaparin Sodium 40 MG/0.4 ML SYRINGE SC SCH (09:00)
[2019-02-01] MEDS ORDERED: Alendronate Sodium 70 mg Tablet PO SCH (09:00)
[2019-02-01 09:28] LABS: Cardiac Risk 3.5 (Less than 4.5)
[2019-02-01] MEDS ORDERED: Ondansetron PF 4 MG/2 ML Vial ONE ×2 (09:35→17:23)
[2019-02-01] MEDS ORDERED: Glycopyrrolate 0.2 MG/ML 5 ML SYRINGE ONE ×2 (09:35→17:23)
[2019-02-01] MEDS ORDERED: Rocuronium Bromide 10 MG/ML (10ML VIAL) ONE ×2 (09:35→17:23)
[2019-02-01] MEDS ORDERED: PROPOFOL 200 MG/20 ML VIAL ONE (09:35)
[2019-02-01] MEDS ORDERED: Lidocaine 1% PF 5 ML VIAL ONE (09:35)
[2019-02-01] MEDS: Calcium Carbonate + Vit D 1 TAB PO SCH ×2 (09:45→17:23)
[2019-02-01] MEDS: Aspirin 81 mg Enteric Coated Tablet PO SCH (09:46)
[2019-02-01] MEDS: Multivitamin W/ Minerals 1 TAB PO SCH (09:46)
[2019-02-01] MEDS: Magnesium Chloride 64 MG TAB PO SCH ×2 (09:46→17:28)
[2019-02-01] MEDS: Niacin 500 MG TAB PO SCH ×2 (09:46→17:28)
[2019-02-01] MEDS: FLUoxetine HCl 20 MG CAP PO SCH (09:46)
[2019-02-01] MEDS: Allopurinol 100 MG TAB PO SCH (09:46)
[2019-02-01] MEDS: Tacrolimus 0.5 MG CAP PO SCH ×2 (09:47→20:16)
[2019-02-01] MEDS: OXcarbazepine 300 MG TAB PO SCH ×2 (09:47→20:16)
[2019-02-01] MEDS: Potassium Chloride 20 MEQ TAB PO SCH (09:47)
[2019-02-01] MEDS ORDERED: Ketorolac Tromethamine 30 MG/ML VIAL IVP PRN (12:59)
[2019-02-01] MEDS ORDERED: Acetaminophen 1,000 MG in Premix Bag 1 BAG IVPB PRN (12:59)
[2019-02-01] MEDS ORDERED: Ketorolac Tromethamine 30 MG/ML VIAL IVP SCH (13:00)
[2019-02-01] MEDS ORDERED: Acetaminophen 1,000 MG in Premix Bag 1 BAG IVPB SCH (13:00)
[2019-02-01] MEDS ORDERED: Bupivacaine/Epinephrine 0.25% 30 ML VIAL ONE ×2 (13:41→20:29)
[2019-02-01] MEDS ORDERED: Ioversol 68 % 50 ML VIAL ONE (13:41)
[2019-02-01] MEDS ORDERED: Fentanyl 100 MCG/2 ML VIAL ONE ×4 (13:43→23:38)
--- NOTE | 2019-02-01 13:45 | HP ---
HISTORY OF PRESENT ILLNESS: Gurwinder Bernabe is a 48-year-old male patient, 2-1/2 years status post cardiac transplantation in [place]. Prior to that, he had LVAD, had 4 defibrillators and postoperatively he has done well. He is followed by learning and development administrator, Dr. Aleshia Romero, office #[phone], cell phone #[phone]. The patient has a very close friend "adopted daughter," Shwetha RN [phone], works at [employer] [facility]. The patient reports with epigastric pain, back radiation, nausea ongoing for 4 days. He is admitted with slightly elevated lipase. Ultrasound of abdomen, CT scan of the abdomen and pelvis revealed cholelithiasis, normal bile duct caliber without cholecystitis without remarkable findings. Plan is for laparoscopic cholecystectomy. I have talked to his learning and development administrator, Aleshia Romero MD, cardiac transplant services, [place] and she states that she saw Mr. Bernabe in the office last week with a normal echocardiogram and from a cardiovascular standpoint he is doing very well and no cardiac intervention needs to be done and she believes it is safe for us to proceed with laparoscopic cholecystectomy. I have explained to the patient the risks of infection, bleeding, visceral and biliary injury and he consents. The patient had been complaining of epigastric pain and has a prominent xiphoid. He had talked to a hernia surgeon in [place] about having the xiphoid removed, but he is now thinking the pain he is having has been from his gallbladder and not from the xiphoid and he will not have to have that removed. I agreed. I examined him. He does not have a hernia. He has diastasis recti. ALLERGIES: SULFA, IODINE. SOCIAL HISTORY: Tobacco, none. Alcohol, none. MEDICATIONS: 1. Pepcid. 2. Potassium chloride. 3. Multivitamins. 4. Atorvastatin. 5. Protonix. 6. Magnesium. 7. Fluoxetine. 8. Allopurinol. 9. Niacin. 10. Aspirin. 11. Sirolimus. 12. Alendronate. 13. Prograf. PAST SURGICAL HISTORY: Previous defibrillators, up to date on his colonoscopies, cardiac transplantation in [place] on June 09, 2016. PAST MEDICAL HISTORY: Hypertension, elevated cholesterol, history of cardiac transplant. REVIEW OF SYSTEMS: Ten-point noncontributory. SOCIAL HISTORY: The patient is for 14 years. 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 PHYSICAL EXAMINATION: VITAL SIGNS: Height 5 feet 8 inches, 192 pounds, 29 BMI, 97.5, 84, 123/77. HEAD, EARS, EYES, NOSE, AND THROAT: Unremarkable. LUNGS: Clear to auscultation. CARDIAC: Regular rate and rhythm without murmur or gallop. ABDOMEN: Soft, tenderness in right upper quadrant with mild guarding. No rebound. No peritoneal signs. EXTREMITIES: Unremarkable. ASSESSMENT AND PLAN: Cholecystitis, cholelithiasis, probably biliary pancreatitis. Recommend laparoscopic video cholecystectomy, cholangiograms. He understands risks and benefits and consents. I have talked to his learning and development administrator, transplant in [place] and she concurs it is safe to proceed as outpatient cholecystectomy. Job ID: [id number]
[2019-02-01] MEDS ORDERED: Midazolam HCl 2 mg/2 ml Vial ONE ×2 (13:58→20:28)
[2019-02-01] MEDS ORDERED: traMADol HCl 50 MG TAB PO PRN ×2 (15:25)
[2019-02-01] MEDS ORDERED: Ibuprofen 600 MG TAB PO PRN (15:25)
[2019-02-01] MEDS ORDERED: Promethazine HCl 25 MG/ML VIAL ONE (15:34)
[2019-02-01] MEDS ORDERED: Promethazine HCl 25 MG/ML VIAL IM PRN (15:37)
[2019-02-01] MEDS ORDERED: Promethazine HCl 25 MG/ML VIAL SLOW IVP PRN (15:37)
[2019-02-01] MEDS ORDERED: Ondansetron HCl/PF 4 MG/2 ML Vial IVP PRN ×2 (15:37→23:04)
--- NOTE | 2019-02-01 16:54 | OP ---
DATE OF PROCEDURE: 02/01/2019 PREOPERATIVE DIAGNOSES: Chronic cholecystitis, cholelithiasis, cardiac transplant patient 2-1/2 years ago. Lipase slightly elevated. Common bile duct normal. Liver function tests normal. PROCEDURES PERFORMED: Laparoscopic video cholecystectomy, failed attempted cholangiograms, could not cannulate the cystic duct. ANESTHESIA: General, local of 0.5% Marcaine with epinephrine 30 mL. Of note, the patient had a prominent xiphoid and he felt this was causing his pain, but he hopes that after cholecystectomy, this pain will resolve and his xiphoid will not have to be resected. DESCRIPTION OF PROCEDURE: The patient was taken to the operating room, where under general anesthesia, abdomen was prepared with ChloraPrep and draped in routine fashion. A 0.5% Marcaine with epinephrine was infiltrated in the skin and subcutaneous tissue about each port site. An infraumbilical incision was made. Pneumoperitoneum to 15 mmHg was obtained. With a Veress needle, replacing with a 5 port. Right subxiphoid incision was made and 11 port placed. Right subcostal incision was made at midclavicular and anterior axillary line, the 5 port was placed. Liver appeared to be normal. Fundus of the gallbladder was grasped at the cephalad. Infundibulum was grasped and reflected laterally. Cystic artery and duct dissected free. Critical view obtained. Cystic artery doubly clipped proximally. Cystic duct singly clipped on the gallbladder side. Opening was made in the cystic duct, which was very tiny. Cholangiocath could not be threaded. Cholangiograms were not obtained. Cystic duct stump doubly clipped. Gallbladder removed from the gallbladder using cautery and gallbladder stones were removed and submitted to Pathology. Good hemostasis was obtained in the liver bed using cautery and Arlen. The patient tolerated the procedure well. His pneumoperitoneum was evacuated. All instruments removed and all skin incisions were approximated with interrupted subdermal 4-0 Monocryl and [place] glue applied. Job ID: [id number]
[2019-02-01] MEDS ORDERED: diphenhydrAMINE 50 MG/ML VIAL ONE (17:23)
[2019-02-01] MEDS ORDERED: Calcium Chloride 1 GM/10 ML Abboject SYRINGE ONE (17:23)
[2019-02-01] MEDS ORDERED: Dexamethasone 20 MG/5 ML VIAL ONE (17:23)
[2019-02-01] MEDS ORDERED: Bupivacaine HCl 0.5%/Epinephrine 1:200,000/PF 30 ml Vial ONE (19:44)
[2019-02-01] MEDS ORDERED: Lactated Ringer's 1,000 ML IV SCH ×2 (19:45)
[2019-02-01] MEDS ORDERED: Heparin 10,000 UNITS/1 ML VIAL ONE (20:00)
[2019-02-01 20:11] LABS: #Eosinphils 0.1 thou/uL (0.0-0.7); #Lymphocytes 1.1 thou/uL (1.20-3.40); #Monocytes 0.9 thou/uL (0.11-0.59); #Neutrophils 16.8 thou/uL (1.40-6.50); %Basophils 0.2 % (0.0-1.0); %Eosinophils 0.3 % (0.0-10.0); %Lymphocytes 5.7 % (21.0-51.0); %Neutrophils 88.8 % (42.0-75.0); Hemoglobin 11.6 g/dL (14.0-18.0); Mean Corpuscular HGB CONC 33.7 g/dL (32.0-36.0); Mean Corpuscular Hemoglobin 28.9 pg (27.0-31.0); Mean Corpuscular Volume 85.7 fL (78.0-98.0); Mean Platelet Volume 7.6 fL (7.4-10.4); Platelet Count 408 thou/uL (130-400); RBC Distribution Width 12.2 % (11.5-14.5); White Blood Cell (WBC) Count 18.9 thou/uL (4.8-10.8)
[2019-02-01] MEDS: Atorvastatin Calcium 40 MG TAB PO SCH (20:16)
[2019-02-01] MEDS ORDERED: Ketamine 50 MG/ML (10ML VIAL) ONE (20:29)
--- NOTE | 2019-02-01 21:18 | PRG ---
DATE OF SERVICE: SUBJECTIVE: Mr. Bernabe postoperatively did well. His blood pressure remained stable in the recovery room and on initial arrival to the floor. I was in ICU attending to another patient when family practice physicians ran across me and told me they had been called that Mr. Bernabe's blood pressure has been dropped to the 60s. He is having increased pain. He is given a fluid bolus. I immediately ran to see him and ordered type and cross 3 units of blood, n.p.o., and repeat laparoscopy. By the time I saw him, his blood pressure is 80 after a portion of the initial IV fluid bolus given. Type and cross 3 units were ordered as noted. His hemoglobin on admission was 14.9, 14 this morning, and 11.6 this evening. Last blood pressure before coming down to the operating room was 97/64. The patient's abdomen is tense and with guarding. The patient looks pale. ASSESSMENT AND PLAN: Suspect postoperative bleeding, emergent return to the operating room with repeat laparoscopy, Cell-Saver, and procedures as indicated. Job ID: [id number]
[2019-02-01] MEDS ORDERED: SUGAMMADEX SODIUM 200 MG/2 ML VIAL ONE (22:38)
[2019-02-01] MEDS ORDERED: Ondansetron ODT 4 MG TAB PO PRN (22:55)
[2019-02-01] MEDS ORDERED: Ondansetron ODT 8 MG TAB SL PRN (22:55)
[2019-02-02] MEDS: Lactated Ringer's 1,000 ML IV SCH ×2 (00:19→08:07)
[2019-02-02] MEDS: Morphine 4 MG/ML VIAL SLOW IVP PRN ×3 (00:25→09:32)
[2019-02-02] MEDS: Morphine 2 MG/ML SYRINGE SLOW IVP PRN ×3 (02:17→12:59)
--- NOTE | 2019-02-02 02:18 | OP ---
DATE OF PROCEDURE: 02/01/2019 PREOPERATIVE DIAGNOSIS: Postoperative bleeding after laparoscopic cholecystectomy, cardiac transplantation. POSTOPERATIVE DIAGNOSIS: Postoperative bleeding after laparoscopic cholecystectomy, cardiac transplantation, apparent bleeding from the omentum. PROCEDURES PERFORMED: Diagnostic laparoscopy, laparoscopic evacuation of clot and blood, LigaSure hemostasis of omental bleeder, Surgicel placed over this, Arlen placed in the liver bed, 3 units of blood transfused, 2 units of fresh frozen plasma, 225 mL auto-transfuser. ANESTHESIA: General. Note, postoperatively the patient had a normal blood pressure in the PACU and arrival to the floor, later he dropped his blood pressure to 60, responded to a liter of LR. Preoperative hemoglobin 14. Hemoglobin checked at the time of hypotension was 11.8. The patient taken urgently to the operating room where laparoscopy risks performed. DESCRIPTION OF PROCEDURE: The patient was taken to the operating room where under general anesthesia, Ramos catheter placed and left in place. Abdomen prepared with ChloraPrep and draped in routine fashion. Incision was made through the old laparoscopic incisions. Pneumoperitoneum to 15 mmHg obtained with a Veress needle, replaced with a 5 port and 11 port placed, right xiphoid and 5 mm ports placed in the midclavicular and anterior axillary lines, subcostal right port. There was blood in the subhepatic spaces and gutter and pelvis and subdiaphragmatic. This was evacuated with the Cell Saver. Clot was removed with suction and ring forceps and 11 port. Persistent evacuation of a hematoma and blood performed. The subhepatic area was irrigated and inspected. There was no active bleeding. This was repeatedly inspected. We had the separate 5 mm port placed in the right lower quadrant, snake retractor to help retract the omentum. There was a small tear in the liver capsule, it was cauterized, but probably not responsible, probably performed as a consequence of the exploration laparoscopy is inherent to the case and not responsible for the hemorrhage. As I inspected the adjacent omentum, I found an area of omentum with a clot, it was oozing blood fairly vigorously. The clot was removed. This area was controlled with a LigaSure. Surgicel was applied. Good hemostasis noted. Most of the clot and irrigation evacuated. Arlen placed in the liver bed, Surgicel over the omental area that was oozing for hemostasis. Further irrigation prior to application of these hemostatic agents revealed there was clear irrigation of fluid and no longer any bleeding. Pneumoperitoneum evacuated. All instruments were removed and subxiphoid fascia approximated with [id number] suture of 0-Vicryl UR needle and all skin incisions approximated with a subdermal 4-0 Monocryl and [place] glue applied. The patient tolerated the procedure well. He was extubated, transferred to the [facility] for observation. Job ID: [id number]
--- NOTE | 2019-02-02 05:31 | PDOC.FM ---
- Subjective Subjective: Patient became hypotensive, tachycardic and pale after his surgery. H&H 11.6/ 34.3. BP responded to 1 L bolus LR. Taken back to surgery by Dr. Abad. He was found to have a bleeding omentum, which was then repaired. Given X3 units of blood. Patient c/o pain in CHAR abdomen when he takes deep breaths. Pt reports "feeling in-and-out" of it, and being somnolent. BP stable this AM. Pt HR in 100's. - Objective MAR Reviewed: Yes Vital Signs & Weight: Vital Signs (12 hours) Temp Pulse Resp BP BP Pulse Ox 02/02/19 03:59 99.2 F 02/02/19 00:43 98 02/02/19 00:36 98.4 F 02/01/19 20:00 97.2 F L 112 H 20 89/65 L 99 02/01/19 18:00 106 H 16 97/64 98 02/01/19 17:30 104 H 16 96/62 97 Weight Admit Weight 87.18 kg Weight 87.18 kg I&O: 01/31/19 02/01/19 02/02/19 06:59 06:59 06:59 Intake Total 522 750 Output Total 0 1050 Balance 522 -300 Result Diagrams: 02/02/19 05:19 02/02/19 05:19 Phys Exam - Physical Examination Constitutional: NAD HEENT: PERRLA, moist MMs, sclera anicteric conjunctival pallor. Neck: no nodes, no JVD, supple, full ROM Respiratory: no wheezing, no rales, no rhonchi, clear to auscultation bilateral Cardiovascular: no significant murmur, no rub Tachycardia with regular rhythm. Gastrointestinal: soft, no distention, positive bowel sounds Surgical laparotomy site is clean and dry, without drainage. Musculoskeletal: no edema, pulses present negative homans sign. Neurological: non-focal, normal sensation, moves all 4 limbs Psychiatric: normal affect, A&O x 3 Skin: no rash, normal turgor, cap refill <2 seconds Deviation from normal: pale skin. Dx/Plan (1) Postoperative anemia due to acute blood loss Code(s): D62 - ACUTE POSTHEMORRHAGIC ANEMIA Status: Acute (2) Pancreatitis Code(s): K85.90 - ACUTE PANCREATITIS WITHOUT NECROSIS OR INFECTION, UNSP Status: Acute (3) Bipolar disorder Code(s): F31.9 - BIPOLAR DISORDER, UNSPECIFIED Status: Chronic (4) Chronic gouty arthritis Code(s): M1A.00X0 - IDIOPATHIC CHRONIC GOUT, UNSPECIFIED SITE, WITHOUT TOPHUS Status: Chronic (5) Heart transplant recipient Code(s): Z94.1 - HEART TRANSPLANT STATUS Status: Chronic (6) HTN (hypertension) Code(s): I10 - ESSENTIAL (PRIMARY) HYPERTENSION Status: Acute (7) HLD (hyperlipidemia) Code(s): E78.5 - HYPERLIPIDEMIA, UNSPECIFIED Status: Acute - Plan Plan: Patient is a 48M with PMHx of HTN, HLD, gout, colitis, migraines, bipolar, and CHF s/p heart transplant that is being admitted for pancreatitis. Pt found to have Cholelithiasis. Dr. Abad took patient to OR for Laparoscopic Cholecystectomy on 02/01. Pt taken back to OR with Post Operative bleeding from omentum to be repaired, after developing symptomatic acute blood loss anemia. 1. Acute Pancreatitis -Lipase 429, continue to monitor -CT abdomen shows small stones in the gallbladder, not suspicious for cholecystitis -US -BISAP score 0 -Dr. Abad, Gen Surg consulted. Lap Cholecystectomy 07/04. -NPO, IVF -morphine for pain control 2. Acute Blood Loss Anemia 2/2 post op bleeding - Diagnostic Laparoscopy performed on 02/01 after pt became symptomatic with hypotension, tachycardia. - X3 units RBC's, X2 units FFP given. - Trend H&H. Hgb 02/02 AM 12.4. 3. CHF s/p heart transplant -stable -denying cp or sob at this time -continue home meds -Communicating with team managing him post transplant from 2.5 years ago 4. Bipolar -stable, chronic -continue home meds 5. Hx of Gout -stable, chronic -continue home meds 6. Hx of HTN -hold home meds as patient was hypotensive 7. HLD -continue home meds Diet: NPO DVT ppx: lovenox Code: Full Code Dispo: inpatient for pancreatitis management, S/P lap joaquim, S/P Diagnostic Lap for post op bleeding. Stable. Continue post op care and treatment of acute pancreatitis. Addendum - Attending - Attending Attestation Date/Time: 02/02/19 0657 I personally evaluated the patient and discussed the management with Dr. Forbes. I agree with the History, Examination, Assessment and Plan documented above with any addition or exceptions noted below. Patient complains of pain this morning. Had repeat laparoscopy overnight due to acute blood loss and instability. Omental bleed found and corrected in the OR. Patient's vitals are stable and H/H improved, no evidence of further bleeding. Continue pain control as needed. Further mgmt pending GenSurg recs. Lipase significantly improved.
[2019-02-02 06:03] LABS: Anion Gap 12 mmol/L (10-20); BUN (Urea Nitrogen) 14 mg/dL (8.9-20.6); Calc. Creatinine Clearance 99 mL/min (70-130); Carbon Dioxide 25 mmol/L (22-29); Chloride 104 mmol/L (98-107); Estimated GFR-MDRD 70; Potassium 4.6 mmol/L (3.5-5.1); Sodium 136 mmol/L (136-145)
[2019-02-02 06:04] LABS: #Lymphocytes 0.6 thou/uL (1.20-3.40); #Monocytes 0.4 thou/uL (0.11-0.59); #Neutrophils 8.5 thou/uL (1.40-6.50); %Basophils 0.1 % (0.0-1.0); %Eosinophils 0.2 % (0.0-10.0); %Lymphocytes 6.1 % (21.0-51.0); %Monocytes 4.4 % (0.0-10.0); %Neutrophils 89.2 % (42.0-75.0); ALT (SGPT) 106 U/L (8-55); AST (SGOT) 117 U/L (5-34); Albumin 3.4 g/dL (3.5-5.0); Alkaline Phosphatase 131 U/L (40-110); Bilirubin, Total 1.2 mg/dL (0.2-1.2); Globulin 2.5 g/dL (2.4-3.5); Glucose 149 mg/dL (70-105); Hemoglobin 12.4 g/dL (14.0-18.0); Lipase 36 U/L (8-78); Mean Corpuscular HGB CONC 34.5 g/dL (32.0-36.0); Mean Corpuscular Hemoglobin 29.4 pg (27.0-31.0); Mean Corpuscular Volume 85.1 fL (78.0-98.0); Mean Platelet Volume 7.6 fL (7.4-10.4); Platelet Count 190 thou/uL (130-400); Protein, Total 5.9 g/dL (6.0-8.3); RBC Distribution Width 12.4 % (11.5-14.5); Red Blood Cell (RBC) Count 4.23 mill/uL (4.70-6.10); White Blood Cell (WBC) Count 9.5 thou/uL (4.8-10.8)
[2019-02-02] MEDS: Magnesium Chloride 64 MG TAB PO SCH ×2 (09:26→19:59)
[2019-02-02] MEDS: Calcium Carbonate + Vit D 1 TAB PO SCH ×2 (09:26→17:52)
[2019-02-02] MEDS: Niacin 500 MG TAB PO SCH ×2 (09:26→17:52)
[2019-02-02] MEDS: Multivitamin W/ Minerals 1 TAB PO SCH (09:27)
[2019-02-02] MEDS: Allopurinol 100 MG TAB PO SCH (09:27)
[2019-02-02] MEDS: FLUoxetine HCl 20 MG CAP PO SCH (09:27)
[2019-02-02] MEDS: Aspirin 81 mg Enteric Coated Tablet PO SCH (09:27)
[2019-02-02] MEDS: OXcarbazepine 300 MG TAB PO SCH (09:28)
[2019-02-02] MEDS: Potassium Chloride 20 MEQ TAB PO SCH (09:29)
[2019-02-02] MEDS: Tacrolimus 0.5 MG CAP PO SCH (09:31)
[2019-02-02] MEDS: Acetaminophen 500 MG TAB PO PRN ×2 (09:32→20:13)
--- NOTE | 2019-02-02 16:14 | PRG ---
DATE OF SERVICE: 02/02/2019 SUBJECTIVE: Gurwinder Bernabe is doing well today. He is up in a chair. He still has Ramos. I have asked that they remove that right away. He still has IV fluids running, but is tolerating liquids. I have asked them to saline lock that right away. The patient is having postoperative pain, but it is much improved related to last night prior to second operation. OBJECTIVE: VITAL SIGNS: Temperature 98.2 degrees, heart rate 99, and blood pressure 140/90. LUNGS: Clear to auscultation. CARDIAC: Regular rate and rhythm without murmur or gallop. ABDOMEN: Soft. Postoperative tenderness. LABORATORY DATA: White count 9, hemoglobin 12. Sodium 136, BUN 14, ASSESSMENT AND PLAN: Status post laparoscopic cholecystectomy, repeat laparoscopy for postoperative bleed and 3 units of blood transfusion and 2 units of fresh frozen plasma. We will saline lock him and discontinue his Ramos. Add MiraLax. Discontinue NSAIDs as recommended by his transplant associate professor of automation. I have talked to his transplant associate professor of automation, Dr. Romero in [place] and informed her the patient's condition. The patient's transplant associate professor of automation has called the patient and then discussed with the family. Questions have been answered. Plan to transfer him to the surgical floor and check his blood counts in the morning and more likely, will be able to be discharged home in the morning. Job ID: [id number]
[2019-02-02] MEDS: Atorvastatin Calcium 40 MG TAB PO SCH (20:00)
[2019-02-02] MEDS: Gabapentin 300 MG CAP PO SCH (20:01)
[2019-02-02] MEDS: OXcarbazepine 150 MG TAB PO SCH (21:05)
[2019-02-02] MEDS: Tacrolimus 1 MG CAP PO SCH (21:05)
[2019-02-03] MEDS: Acetaminophen 500 MG TAB PO PRN (02:19)
[2019-02-03 05:49] LABS: #Eosinphils 0.1 thou/uL (0.0-0.7); #Lymphocytes 1.1 thou/uL (1.20-3.40); #Monocytes 1.1 thou/uL (0.11-0.59); #Neutrophils 7.9 thou/uL (1.40-6.50); %Basophils 0.2 % (0.0-1.0); %Monocytes 10.3 % (0.0-10.0); %Neutrophils 77.4 % (42.0-75.0); Hemoglobin 10.9 g/dL (14.0-18.0); Mean Corpuscular HGB CONC 34.6 g/dL (32.0-36.0); Mean Corpuscular Hemoglobin 29.2 pg (27.0-31.0); Mean Corpuscular Volume 84.3 fL (78.0-98.0); Platelet Count 187 thou/uL (130-400); RBC Distribution Width 12.6 % (11.5-14.5); Red Blood Cell (RBC) Count 3.73 mill/uL (4.70-6.10); White Blood Cell (WBC) Count 10.2 thou/uL (4.8-10.8)
--- NOTE | 2019-02-03 06:06 | PDOC.FM ---
- Subjective Subjective: Pt states he is only requiring tylenol for his pain. Morphine causes hallucinations for him. Denies BM, feels bloated in his abdomen. Denies drinking fluids very well, but can tolerate. No N/V. Produced 350 mL of urine overnight. Hgb 10.9 this AM. Pt resting comfortable, no SOB or cough. NC O2 not in nares when evaluated. Pt had an O2 sat of 86% on RA overnight. placed on 2 L NC after. - Objective MAR Reviewed: Yes Vital Signs & Weight: Vital Signs (12 hours) Temp Pulse Resp BP BP Pulse Ox 02/03/19 03:05 98.2 F 108 H 16 138/78 94 L 02/03/19 02:35 108 H 93 L 02/03/19 02:30 98.9 F 109 H 86 L 02/02/19 23:22 98.7 F 107 H 16 127/73 92 L 02/02/19 21:02 99.3 F 02/02/19 20:00 98.1 F 02/02/19 19:00 98.2 F 108 H 16 143/85 H 92 L Weight Admit Weight 87.18 kg Weight 87.18 kg I&O: 02/01/19 02/02/19 02/03/19 06:59 06:59 06:59 Intake Total 522 1270 2870 Output Total 0 1800 1260 Balance 522 -530 1610 Result Diagrams: 02/03/19 04:28 02/03/19 04:28 Phys Exam - Physical Examination Constitutional: NAD HEENT: PERRLA, moist MMs Neck: no nodes, no JVD, supple, full ROM Respiratory: no wheezing, no rales, no rhonchi, clear to auscultation bilateral Cardiovascular: RRR, no rub Gastrointestinal: soft, no distention, positive bowel sounds RUQ tender to soft palpation. surgical incisions intact and dry. Musculoskeletal: no edema, pulses present Neurological: non-focal, normal sensation, moves all 4 limbs Psychiatric: normal affect, A&O x 3 Skin: no rash, normal turgor, cap refill <2 seconds Dx/Plan (1) Postoperative anemia due to acute blood loss Code(s): D62 - ACUTE POSTHEMORRHAGIC ANEMIA Status: Acute (2) Pancreatitis Code(s): K85.90 - ACUTE PANCREATITIS WITHOUT NECROSIS OR INFECTION, UNSP Status: Acute (3) Bipolar disorder Code(s): F31.9 - BIPOLAR DISORDER, UNSPECIFIED Status: Chronic (4) Chronic gouty arthritis Code(s): M1A.00X0 - IDIOPATHIC CHRONIC GOUT, UNSPECIFIED SITE, WITHOUT TOPHUS Status: Chronic (5) Heart transplant recipient Code(s): Z94.1 - HEART TRANSPLANT STATUS Status: Chronic (6) HTN (hypertension) Code(s): I10 - ESSENTIAL (PRIMARY) HYPERTENSION Status: Acute (7) HLD (hyperlipidemia) Code(s): E78.5 - HYPERLIPIDEMIA, UNSPECIFIED Status: Acute - Plan Plan: Patient is a 48M with PMHx of HTN, HLD, gout, colitis, migraines, bipolar, and CHF s/p heart transplant that is being admitted for pancreatitis. Pt found to have Cholelithiasis. Dr. Abad took patient to OR for Laparoscopic Cholecystectomy on 02/01. Pt taken back to OR with Post Operative bleeding from omentum to be repaired, after developing symptomatic acute blood loss anemia. 1. Acute Pancreatitis, improved -Lipase 429, 36 -CT abdomen shows small stones in the gallbladder, not suspicious for cholecystitis -US: No evidence of Cholecystitis. Cholelithiasis. -BISAP score 0 -Dr. Abad, Gen Surg consulted. Lap Cholecystectomy 07/04. -increase PO hydration, advanced to regular diet. -Tylenol and tramadol for pain control 2. Acute Blood Loss Anemia 2/2 post op bleeding - Diagnostic Laparoscopy performed on 02/01 after pt became symptomatic with hypotension, tachycardia. - Bleeding omentum repaired. - X3 units RBC's, X2 units FFP given. - Trend H&H. Hgb 02/02 AM 12.4. 3. CHF s/p heart transplant -stable -denying cp or sob at this time -continue home meds. Recommended to discontinue NSAID therapy per transplant team. -Communicating with team managing him post transplant from 2.5 years ago 4. Bipolar -stable, chronic -continue home meds 5. Hx of Gout -stable, chronic -continue home meds 6. Hx of HTN -hold home meds as patient was hypotensive 7. HLD -continue home meds Diet: NPO DVT ppx: lovenox Code: Full Code Dispo: inpatient for pancreatitis management, S/P lap joaquim, S/P Diagnostic Lap for post op bleeding. Stable. Possible D/C home today. Addendum - Attending - Attending Attestation Date/Time: 02/03/19 6843 I personally evaluated the patient and discussed the management with Dr. Forbes. I agree with the History, Examination, Assessment and Plan documented above with any addition or exceptions noted below. Patient here for pancreatitis from gallstones s/p cholecystectomy. He also had postop bleed that required repeat intervention. His blood counts are stable. Continues to have pain resulting in poor inspiratory effort but is overall doing well. Assess activity level today and PO intake status. Surgery recs appreciated. Possible discharge today.
[2019-02-03 06:39] LABS: ALT (SGPT) 86 U/L (8-55); AST (SGOT) 77 U/L (5-34); Albumin 3.4 g/dL (3.5-5.0); Alkaline Phosphatase 120 U/L (40-110); Anion Gap 12 mmol/L (10-20); BUN (Urea Nitrogen) 18 mg/dL (8.9-20.6); Bilirubin, Total 0.5 mg/dL (0.2-1.2); Calc. Creatinine Clearance 91 mL/min (70-130); Calcium 8.9 mg/dL (7.8-10.44); Carbon Dioxide 24 mmol/L (22-29); Chloride 104 mmol/L (98-107); Estimated GFR-MDRD 64; Globulin 2.8 g/dL (2.4-3.5); Glucose 132 mg/dL (70-105); Protein, Total 6.2 g/dL (6.0-8.3); Sodium 136 mmol/L (136-145)
[2019-02-03] MEDS ORDERED: Polyethylene Glycol 3350 17 GM Packet PO SCH (09:00)
[2019-02-03] MEDS: Magnesium Chloride 64 MG TAB PO SCH (09:32)
[2019-02-03] MEDS: Calcium Carbonate + Vit D 1 TAB PO SCH (09:33)
[2019-02-03] MEDS: Tacrolimus 1 MG CAP PO SCH (09:33)
[2019-02-03] MEDS: Gabapentin 300 MG CAP PO SCH (09:33)
[2019-02-03] MEDS: Potassium Chloride 20 MEQ TAB PO SCH (09:33)
[2019-02-03] MEDS: FLUoxetine HCl 20 MG CAP PO SCH (09:34)
[2019-02-03] MEDS: Allopurinol 100 MG TAB PO SCH (09:34)
[2019-02-03] MEDS: Multivitamin W/ Minerals 1 TAB PO SCH (09:35)
[2019-02-03] MEDS: Niacin 500 MG TAB PO SCH (09:35)
[2019-02-03] MEDS: Aspirin 81 mg Enteric Coated Tablet PO SCH (09:35)
[2019-02-03] MEDS: OXcarbazepine 150 MG TAB PO SCH (10:18)
[2019-02-03 11:58] VITALS: BP 136/93; TEMP 98.1
--- NOTE | 2019-02-03 14:18 | PRG ---
DATE OF SERVICE: 02/03/2019 SUBJECTIVE: Gurwinder Bernabe is doing well today status post laparoscopic cholecystectomy complicated by postoperative bleeding requiring repeat laparoscopy with evacuation of blood clot, auto transfusion 250 mL and 3 units of packed cells, 2 units of fresh frozen plasma, postoperatively he has done well. He is in the floor, ambulating and tolerating regular diet. He is taking Tylenol and Ultram p.r.n. pain and has been avoided per Cardiology transplant status. The patient can be discharged home at this time. Resume his home medications. OBJECTIVE: LUNGS: Clear to auscultation. CARDIAC: Regular rate and rhythm without murmur or gallop. ABDOMEN: Soft and nontender. LABORATORY DATA: Stable. Hemoglobin 10.6. Follow up in my office in 2 to 3 weeks. Diet and activity as tolerated. Job ID: [id number]
--- NOTE | 2019-02-03 17:25 | EKG ---
Test Reason : PREOP Blood Pressure : / mmHG Vent. Rate : 088 BPM Atrial Rate : 088 BPM P-R Int : 132 ms QRS Dur : 084 ms QT Int : 392 ms P-R-T Axes : 018 006 056 degrees QTc Int : 474 ms Normal sinus rhythm Prolonged QT Abnormal ECG When compared with ECG of 25-JAN-2018 05:32, Nonspecific T wave abnormality, improved in Anterolateral leads Confirmed by AYDE HERNANDEZ (2) on 02/03/2019 5:25:01 PM Referred By: HEATHER Confirmed By:AYDE HERNANDEZ
--- NOTE | 2019-02-05 00:08 | PQF ---
[employer] Winform Viewer TYE. ZAIAR YUEN MD [id number] CLINICAL DOCUMENTATION CLARIFICATION FORM: POST DISCHARGE Addendum to original discharge summary date: ____ Late entry note date: __ DATE: 02/05/19 ATTN: Zaira Padron Please exercise your independent, professional judgment in responding to the clarification form. Clinical indicators are provided on the bottom of this form for your review Please check appropriate box(s): In the description of the operative procedure a "Small tear in the liver capsule " was noted by the surgeon. If possible would you please further clarify if this was: [ ] Incidental occurrence inherent in the surgical procedure [ ] Complication of the procedure [ ] Other please specify [ ] Unable to determine For continuity of documentation, please document condition throughout progress notes and discharge summary. Thank You. CLINICAL INDICATORS - SIGNS / SYMPTOMS / LABS OP NOTE 02/01pg.2"there was a small tear in the liver capsule" OP NOTE 02/01 pg.2-"it was cauterized,but probably not responsible,probably performed as a consequence of the exploration laparoscopy is inherent to the case and not responsible for the hemorrhage" OP NOTE 02/01-"Arlen placed in the liver bed" PN 02/01 -"BP has been dropped to the 60s" PN 02/02- "Patient became hypotensive, tachycardic and pale after his surgery" RISK FACTORS Acute pancreatitis-HP 02/01 Cholelithiasis with chronic cholecystitis-OP Note 02/01- OP Note 02/01-s/p Lap cholecystectomy-OP Note 02/01- Postoperative bleeding- OP NOTE 02/01 acute blood loss anemia- PN 02/02 TREATMENTS: PN 02/01- IV fluid bolus PN 02/01- Transfused PRBC OP NOTE 02/01- Laparoscopic evacuation of clot and blood PN 02/02- 2 units FFP (This form is maintained as a part of the permanent medical record) 2014 [employer]. All Rights Reserved [email or web address] [not provided] MTDD
--- NOTE | 2019-02-05 08:42 | DIS ---
DATE OF ADMISSION: 02/01/2019 DATE OF DISCHARGE: 02/03/2019 RESIDENT: Clau Forbes DO ADMITTING ATTENDING: Dr. Hutton. DISCHARGE ATTENDING: Dr. Antony CONSULTS: 1. Surgery, Dr. Abad. 2. Pulmonology, Dr. Lam. PROCEDURES PERFORMED: Abdominal ultrasound, cholelithiasis, no cholecystitis, abdominal/pelvis CT, contracted gallbladder with small gallstones. No CT evidence of cholecystitis. On 02/01/2019, Dr. Abad, surgeon took Mr. Bernabe to the OR for a laparoscopic video cholecystectomy after failed attempted cholangiogram could not cannulate the cystic duct. Also on 02/01/2019, Dr. Shultz took Mr. Bernabe for postoperative bleeding after laparoscopic cholecystectomy for a diagnostic laparoscopy/laparoscopic evaluation of clot and blood, LigaSure hemostasis of omental bleeder, Surgicel placed over this, Arlen placed in the liver bed. Also on 02/01/2019, transfusion of three packed RBCs, 2 units of fresh frozen plasma given. DIAGNOSES: 1. Acute pancreatitis. 2. Cholelithiasis. 3. Acute blood loss anemia secondary to postop bleeding post cholecystectomy. 4. Congestive heart failure, status post heart transplant. 5. Bipolar disorder. 6. History of gout. 7. History of hypertension. 8. History of hyperlipidemia. DISCHARGE MEDICATIONS: 1. Acetaminophen 1000 mg p.o. q.6 hours. 2. Alendronate 70 mg p.o. q.7 day. 3. Allopurinol 1 tab p.o. daily. 4. Aspirin 81 mg p.o. daily. 5. Atorvastatin 80 mg p.o. at bedtime. 6. Calcium/Vitamin-D tablet one p.o. b.i.d. 7. Pepcid 10 mg p.o. q.i.d. 8. Fluoxetine 80 mg p.o. daily. 9. Magnesium 64 mg p.o. b.i.d. 10. Multivitamin one pill daily. 11. Niacin 500 mg p.o. b.i.d. 12. Oxcarbazepine 300 mg one half tablet p.o. b.i.d. 13. Protonix 40 mg p.o. daily. 14. Potassium chloride 20 mEq p.o. daily. 15. Sirolimus 2 mg p.o. daily. 16. Tacrolimus 1 mg p.o. b.i.d. 17. Tramadol 50 mg p.o. q.6 hours as needed for pain. HISTORY OF PRESENT ILLNESS/HOSPITAL COURSE: Mr. Bernabe is a 48-year-old male with a past medical history of cardiac transplant about 2-1/2 years ago, came into the emergency department with abdominal pain, nausea and vomiting. He was found to have pancreatitis in the setting of cholelithiasis. The patient's abdominal ultrasound and CT imaging did not show any cholecystitis but only cholelithiasis with normal common bile duct. The patient's pancreatitis was thought to be caused by microstones coming from the gallbladder. Dr. Abad was consulted and made a decision to take the patient back for a laparoscopic cholecystectomy. The patient initially tolerated the procedure well and Dr. Abad was going to discharge him later that day, but he had a hypotensive episode where he developed reflex tachycardia and became very lethargic. Dr. Abad was called to bedside, made decision to go back to the operating room. The patient was transfused 3 units of packed RBCs and 2 units FFP. He was found to have a bleeding omentum and hepatic bed. Dr. Abad repaired these in the OR via diagnostic laparoscopy. The patient then was transferred back to [facility], where he was stabilized. Over the next few days, he began to show progress in his healing and was eventually stable enough to be discharged home. His hemoglobin was stable upon discharge, as well as his vital signs. The patient will follow up with his transplant team, who was communicating with myself and with Dr. Abad throughout this entire process. DISPOSITION: The patient was stable upon discharge. DISCHARGE INSTRUCTIONS: 1. Location: Back to home. 2. Diet: Heart healthy consistent carb. 3. Activity: As tolerated. 4. Followup: Follow up with transplant team. Follow up with Dr. Abad in 2 to 3 weeks. Follow up with primary care provider, Dr. Betancourt, in 1 week's time. Job ID: [id number] MTDD
[2019-02-06 01:07] LABS: Sirolimus 3.4 ng/mL (3.0-20.0); Tacrolimus 6.7 ng/mL (2.0-20.0)
== END 2019-02-03 15:10 | disposition home or self-care (01) | DRG 417 ==
LOC: SCSER 23:16 → 2SW 02-01 00:45 → OBSVTOIN 02-01 03:50 → T4-B 02-01 09:09 → IMCU/EMU 02-01 23:59 → SURG A 02-02 17:44
PROVIDERS: ADMIT Emergency Medicine; ATTEND Emergency Medicine
PROC: 0FT44ZZ Resection of Gallbladder, Percutaneous Endoscopic Approach (ICD-10-PCS; principal; 2019-02-01)
PROC: 0DC Gastrointestinal System, Extirpation (ICD-10-PCS; 2019-02-01)
PROC: 0W3H4ZZ Control Bleeding in Retroperitoneum, Percutaneous Endoscopic Approach (ICD-10-PCS; 2019-02-01)
PROC: 30233L1 Transfusion of Nonautologous Fresh Plasma into Peripheral Vein, Percutaneous Approach (ICD-10-PCS; 2019-02-01)
PROC: 30233N1 Transfusion of Nonautologous Red Blood Cells into Peripheral Vein, Percutaneous Approach (ICD-10-PCS; 2019-02-01)
PROC: 30233K1 Transfusion of Nonautologous Frozen Plasma into Peripheral Vein, Percutaneous Approach (ICD-10-PCS; 2019-02-01)
DX: K80.10 Calculus of gallbladder with chronic cholecystitis without obstruction (principal); K85.10 Biliary acute pancreatitis without necrosis or infection; K91.840 Postprocedural hemorrhage of a digestive system organ or structure following a digestive system procedure; Z94.1 Heart transplant status; I50.22 Chronic systolic (congestive) heart failure; S36.113A Laceration of liver, unspecified degree, initial encounter; D62 Acute posthemorrhagic anemia; Y83.8 Other surgical procedures as the cause of abnormal reaction of the patient, or of later complication, without mention of misadventure at the time of the procedure; E78.5 Hyperlipidemia, unspecified; G43.909 Migraine, unspecified, not intractable, without status migrainosus; F31.9 Bipolar disorder, unspecified; E78.00 Pure hypercholesterolemia, unspecified; I11.0 Hypertensive heart disease with heart failure; K66.8 Other specified disorders of peritoneum; X58.XXXA Exposure to other specified factors, initial encounter; Z88.2 Allergy status to sulfonamides; Z88.8 Allergy status to other drugs, medicaments and biological substances; Z79.82 Long term (current) use of aspirin; Z79.899 Other long term (current) drug therapy; Z87.891 Personal history of nicotine dependence; M1A.9XX0 Chronic gout, unspecified, without tophus (tophi); K21.9 Gastro-esophageal reflux disease without esophagitis
CPT/HCPCS: 36415; 36416; 36430; 74176; 76000; 76705; 80048; 80053; 80061; 80195; 80197; 81003; 83615; 83690; 85025; 86850; 86900; 86901; 88304; 93005; 93010; 96361; 96374; 96375; 96376; J0131; J0670; J1100; J1200; J1610; J1644; J1650; J1885; J1956; J2001; J2250; J2270; J2405; J2550; J2704; J3010; J7507; J7520; P9016; P9059; Q9967

== ENCOUNTER 2019-03-07 07:44 | Outpatient (CLI) | payer MEDICARE ==
--- NOTE | 2019-03-07 10:06 | CT ---
CT ABDOMEN AND PELVIS WITH IV AND ORAL CONTRAST: HISTORY: Abdominal pain and vomiting. Recent cholecystectomy. COMPARISON: 02/04/2019 and 01/31/2019. FINDINGS: Small amount of gastroesophageal reflux. Lung bases are now clear. Small pocket of noninflamed flui d in the left upper anterior abdomen adjacent to the anterior margin of the right cardiac ventricle i s stable. Gallbladder is surgically absent. A smoothly marginated oval collection of fluid at the gallbladder fossa is 4.4 cm length x 2.3 cm width. It is of homogeneous fluid density without internal gas. Th ere is subtle stranding around the hepatic flexure of the colon with mild circumferential wall thicke dominga. The wall was not significantly thickened on prior exams. No free air within the abdomen. Small right renal cyst is stable. Prominent calcification throughout the arterial structures. Bilat eral spondylolysis with minimal spondylolisthesis at the lumbosacral junction is similar in appearanc e to the prior study. IMPRESSION: 1. Postoperative changes consistent with recent cholecystectomy. Small noncomplicated fluid collect ion remains at the gallbladder fossa. 2. Mildly inflamed appearance of the hepatic flexure of the colon, including circumferential wall th ickening. Cause is not evident. 3. Gastroesophageal reflux. 4. Chronic-type findings are stable. POS: TPC
== END 2019-03-07 07:45 | disposition home or self-care (01) ==
LOC: CT 07:44
PROVIDERS: ATTEND Specialist
DX: R10.13 Epigastric pain (principal); R19.7 Diarrhea, unspecified; K21.9 Gastro-esophageal reflux disease without esophagitis; Z90.49 Acquired absence of other specified parts of digestive tract
CPT/HCPCS: 74177

== ENCOUNTER 2020-06-04 11:36 | Emergency (ER) | payer MEDICARE ==
[2020-06-04 12:37] LABS: #Monocytes 0.8 thou/uL (0.11-0.59); #Neutrophils 6.4 thou/uL (1.40-6.50); %Basophils 0.5 % (0.0-1.0); %Eosinophils 0.4 % (0.0-10.0); %Monocytes 9.2 % (0.0-10.0); %Neutrophils 77.9 % (42.0-75.0); Hemoglobin 15.7 g/dL (14.0-18.0); Mean Corpuscular HGB CONC 33.3 g/dL (32.0-36.0); Mean Corpuscular Hemoglobin 28.8 pg (27.0-31.0); Mean Corpuscular Volume 86.5 fL (78.0-98.0); Mean Platelet Volume 7.5 fL (7.4-10.4); Platelet Count 224 thou/uL (130-400); RBC Distribution Width 12.7 % (11.5-14.5); Red Blood Cell (RBC) Count 5.47 mill/uL (4.70-6.10); White Blood Cell (WBC) Count 8.2 thou/uL (4.8-10.8)
[2020-06-04 12:56] LABS: ALT (SGPT) 26 U/L (8-55); AST (SGOT) 21 U/L (5-34); Albumin 4.1 g/dL (3.5-5.0); Alkaline Phosphatase 187 U/L (40-110); Anion Gap 11 mmol/L (10-20); BUN (Urea Nitrogen) 10 mg/dL (8.4-25.7); Bilirubin, Total 0.7 mg/dL (0.2-1.2); Calc. Creatinine Clearance 0 mL/min (70-130); Calcium 9.2 mg/dL (7.8-10.44); Carbon Dioxide 25 mmol/L (22-29); Chloride 105 mmol/L (98-107); Globulin 3.4 g/dL (2.4-3.5); Glucose 138 mg/dL (70-105); Potassium 4.3 mmol/L (3.5-5.1); Protein, Total 7.5 g/dL (6.0-8.3); Sodium 137 mmol/L (136-145)
[2020-06-04] MEDS ORDERED: Ketorolac Tromethamine 30 MG/ML VIAL ONE (13:35)
[2020-06-04] MEDS ORDERED: Clindamycin/D5W 600 mg/50 ml Premix Bag ONE (13:35)
== END 2020-06-04 14:12 | disposition home or self-care (01) ==
LOC: ERS 11:36
DX: L03.211 Cellulitis of face (principal); K04.7 Periapical abscess without sinus; E78.5 Hyperlipidemia, unspecified; I11.0 Hypertensive heart disease with heart failure; I50.9 Heart failure, unspecified; M10.9 Gout, unspecified; G43.909 Migraine, unspecified, not intractable, without status migrainosus
CPT/HCPCS: 36415; 70486; 80053; 85025; 96365; 96375; J1885; J3490

== ENCOUNTER 2023-05-26 13:39 | Observation (INO) | payer MEDICARE ==
[2023-05-26 14:28] VITALS: BMI 29.6
[2023-05-26] MEDS ORDERED: Acetaminophen 325 MG TAB PO PRN (14:30)
[2023-05-26] MEDS ORDERED: Ondansetron PF 4 MG/2 ML Vial IVP PRN (16:02)
[2023-05-26] MEDS ORDERED: Enoxaparin 40 MG (0.4 mL) SYRINGE SC SCH (16:15)
[2023-05-26] MEDS ORDERED: Ketorolac Tromethamine 30 MG (1 mL) VIAL IVP SCH (16:15)
[2023-05-26] MEDS ORDERED: Oseltamivir 75 MG CAP PO SCH (21:00)
[2023-05-26] MEDS: Atorvastatin Calcium 40 MG TAB PO SCH (21:04)
[2023-05-26] MEDS: Magnesium Chloride 64 MG TAB PO SCH (21:05)
[2023-05-26] MEDS: Icosapent Ethyl 1 GM CAPSULE PO SCH (21:05)
[2023-05-26] MEDS: Calcium Carbonate 600 MG + Vit D TAB PO SCH (21:05)
[2023-05-26] MEDS: Tacrolimus 1 MG CAP PO SCH (21:06)
[2023-05-26] MEDS: OXcarbazepine 300 MG TAB PO SCH (21:06)
[2023-05-26] MEDS: Amlodipine 5 MG TAB PO SCH (21:06)
[2023-05-27] MEDS ORDERED: Acetaminophen 325 MG TAB PO PRN (05:49)
[2023-05-27 06:57] LABS: Legionella Urinary Ag Negative (Negative); Strep pneumo Urine Ag NEGATIVE (NEGATIVE)
[2023-05-27] MEDS: OXcarbazepine 300 MG TAB PO SCH ×2 (08:38→19:51)
[2023-05-27] MEDS: FLUoxetine HCl 10 MG CAP PO SCH (08:38)
[2023-05-27] MEDS: Potassium Chloride 20 MEQ TAB PO SCH (08:38)
[2023-05-27] MEDS: Calcium Carbonate 600 MG + Vit D TAB PO SCH ×2 (08:38→19:50)
[2023-05-27] MEDS: Allopurinol 100 MG TAB PO SCH (08:38)
[2023-05-27] MEDS: Oseltamivir 75 MG CAP PO SCH ×2 (08:38→19:50)
[2023-05-27] MEDS: Icosapent Ethyl 1 GM CAPSULE PO SCH ×2 (08:38→19:50)
[2023-05-27] MEDS: Magnesium Chloride 64 MG TAB PO SCH ×2 (08:38→19:52)
[2023-05-27] MEDS: Aspirin 81 mg Enteric Coated Tablet PO SCH (08:39)
[2023-05-27] MEDS: Tacrolimus 1 MG CAP PO SCH ×2 (08:39→19:50)
[2023-05-27] MEDS: predniSONE 20 MG TAB PO SCH (08:39)
[2023-05-27] MEDS: cefTRIAXone\\ROCEPHIN 1 GM in Sodium Chloride 0.9% 100 ML IVPB SCH (08:39)
[2023-05-27] MEDS: Multivit, Therapeutic 1 TAB PO SCH (08:39)
[2023-05-27] MEDS: Enoxaparin 40 MG (0.4 mL) SYRINGE SC SCH (08:39)
[2023-05-27] MEDS ORDERED: Non-Formulary Item 1 EACH (Prednisone [Prednisone] 10 MG Tablet) PO SCH (09:00)
[2023-05-27] MEDS ORDERED: SIROLIMUS 2 MG PO SCH (09:00)
[2023-05-27] MEDS: Azithromycin 500 MG in Sodium Chloride 0.9% 250 ML 250 ML IVPB SCH (09:36)
[2023-05-27] MEDS: Fioricet 325/50/40 mg Tablet PO PRN ×2 (11:05→19:47)
[2023-05-27] MEDS ORDERED: Ipratropium/Albuterol 3 ML NEB NEB PRN (17:26)
[2023-05-27] MEDS: Amlodipine 5 MG TAB PO SCH (19:51)
[2023-05-27] MEDS: Atorvastatin Calcium 40 MG TAB PO SCH (19:51)
[2023-05-27] MEDS: Fluticasone Propionate Nasal Spray 16 gm Bottle NASAL SCH (19:56)
[2023-05-28 07:47] LABS: #Eosinphils 0.1 thou/uL (0.0-0.7); #Monocytes 0.5 thou/uL (0.11-0.59); %Basophils 0.2 % (0.0-1.0); %Eosinophils 1.1 % (0.0-10.0); %Lymphocytes 21.1 % (21.0-51.0); %Monocytes 10.8 % (0.0-10.0); %Neutrophils 66.1 % (42.0-75.0); Hematocrit 42.2 % (42.0-52.0); Mean Corpuscular HGB CONC 33.2 g/dL (32.0-36.0); Mean Corpuscular Hemoglobin 30.1 pg (27.0-31.0); Mean Corpuscular Volume 90.8 fl (78.0-98.0); Mean Platelet Volume 9.4 fL (7.4-10.4); Platelet Count 164 10x3/uL (130-400); RBC Distribution Width 14.7 % (11.5-14.5); Red Blood Cell (RBC) Count 4.65 mill/uL (4.70-6.10); White Blood Cell (WBC) Count 4.5 10x3/uL (4.8-10.8)
[2023-05-28 08:03] LABS: Anion Gap 14 mmol/L (10-20); BUN (Urea Nitrogen) 13 mg/dL (8.4-25.7); Calc. Creatinine Clearance 126 mL/min (70-130); Calcium 8.9 mg/dL (7.8-10.44); Carbon Dioxide 25 mmol/L (22-29); Chloride 106 mmol/L (98-107); Estimated GFR 104; Glucose 144 mg/dL (70-105); Potassium 3.3 mmol/L (3.5-5.1); Sodium 142 mmol/L (136-145)
[2023-05-28] MEDS: cefTRIAXone\\ROCEPHIN 1 GM in Sodium Chloride 0.9% 100 ML IVPB SCH (08:05)
[2023-05-28] MEDS: Magnesium Chloride 64 MG TAB PO SCH (08:05)
[2023-05-28] MEDS: Calcium Carbonate 600 MG + Vit D TAB PO SCH (08:05)
[2023-05-28] MEDS: Allopurinol 100 MG TAB PO SCH (08:05)
[2023-05-28] MEDS: Potassium Chloride 20 MEQ TAB PO SCH (08:06)
[2023-05-28] MEDS: Tacrolimus 1 MG CAP PO SCH (08:06)
[2023-05-28] MEDS: FLUoxetine HCl 10 MG CAP PO SCH (08:06)
[2023-05-28] MEDS: predniSONE 20 MG TAB PO SCH (08:06)
[2023-05-28] MEDS: Oseltamivir 75 MG CAP PO SCH (08:06)
[2023-05-28] MEDS: Aspirin 81 mg Enteric Coated Tablet PO SCH (08:06)
[2023-05-28] MEDS: Icosapent Ethyl 1 GM CAPSULE PO SCH (08:06)
[2023-05-28] MEDS: OXcarbazepine 300 MG TAB PO SCH (08:06)
[2023-05-28] MEDS: Multivit, Therapeutic 1 TAB PO SCH (08:06)
[2023-05-28] MEDS: Fluticasone Propionate Nasal Spray 16 gm Bottle NASAL SCH (08:07)
[2023-05-28] MEDS: Enoxaparin 40 MG (0.4 mL) SYRINGE SC SCH (08:07)
[2023-05-28] MEDS: Azithromycin 500 MG in Sodium Chloride 0.9% 250 ML 250 ML IVPB SCH (09:15)
[2023-05-28] MEDS ORDERED: Potassium Chloride 20 MEQ TAB PO SCH (10:15)
[2023-05-28] MEDS ORDERED: Amlodipine 5 MG TAB PO SCH ×2 (10:15→21:00)
[2023-05-28] MEDS: NIACINAMIDE 500 MG PO SCH ×2 (10:53→10:54)
[2023-05-28 14:01] VITALS: BP 153/92; TEMP 98
[2023-06-01] MEDS ORDERED: FLU VACC QS2023-24(6MOS UP)/PF 60 MCG/0.5 ML SYRINGE IM ONE (09:00)
== END 2023-05-28 14:01 | disposition home or self-care (01) ==
LOC: T4-A 13:39 → INTOOBSV 13:39
PROVIDERS: ADMIT Internal Medicine; ATTEND Hospitalist
DX: I11.0 Hypertensive heart disease with heart failure (principal); I50.22 Chronic systolic (congestive) heart failure; J10.1 Influenza due to other identified influenza virus with other respiratory manifestations; E78.5 Hyperlipidemia, unspecified; F17.200 Nicotine dependence, unspecified, uncomplicated; R06.03 Acute respiratory distress; Z91.041 Radiographic dye allergy status; Z88.2 Allergy status to sulfonamides; Z79.82 Long term (current) use of aspirin; Z79.899 Other long term (current) drug therapy; Z94.1 Heart transplant status
CPT/HCPCS: 80048; 84145; 85025; 87070; 87081; 87205; 87430; 87449; 87633; 87899; 96372 ×2; 96374; 96375; 96376; G0378 ×3; G0379; J0456 ×2; J7520 ×3; 36415; J0696; J1650; J1885; J2405; J3490; J7050; J7507; J7512

== ENCOUNTER 2024-04-08 22:33 | Emergency (ER) | payer MEDICARE ==
[2024-04-08 23:50] LABS: #Basophils 0.06 10x3/uL (0.0-0.2); %Basophils 0.7 % (0.0-1.0); %Eosinophils 1.9 % (0.0-10.0); %Lymphocytes 14.9 % (21.0-51.0); %Monocytes 8.3 % (0.0-10.0); %Neutrophils 73.8 % (42.0-75.0); Hematocrit 41.3 % (42.0-52.0); Hemoglobin 13.8 g/dL (14.0-18.0); Mean Corpuscular HGB CONC 33.4 g/dL (32.0-36.0); Mean Corpuscular Hemoglobin 29.6 pg (27.0-31.0); Mean Corpuscular Volume 88.6 fL (78.0-98.0); Mean Platelet Volume 8.9 fL (7.4-10.4); Platelet Count 217 10x3/uL (130-400); RBC Distribution Width 14.3 % (11.5-14.5); Red Blood Cell (RBC) Count 4.66 mill/uL (4.70-6.10)
[2024-04-08] MEDS ORDERED: Morphine 4 MG/ML VIAL ONE (23:50)
[2024-04-08] MEDS ORDERED: Ondansetron PF 4 MG/2 ML Vial ONE (23:50)
[2024-04-09 00:07] LABS: ALT (SGPT) 21 U/L (8-55); AST (SGOT) 12 U/L (5-34); Albumin 3.2 g/dL (3.5-5.0); Alkaline Phosphatase 121 U/L (40-110); Anion Gap 11 mmol/L (10-20); BUN (Urea Nitrogen) 13 mg/dL (8.4-25.7); Bilirubin, Total 0.4 mg/dL (0.2-1.2); Calc. Creatinine Clearance 0 mL/min (70-130); Calcium 8.4 mg/dL (7.8-10.44); Carbon Dioxide 24 mmol/L (22-29); Chloride 108 mmol/L (98-107); Estimated GFR 93; Globulin 3.1 g/dL (2.4-3.5); Glucose 125 mg/dL (70-105); Lipase 22 U/L (8-78); Potassium 3.8 mmol/L (3.5-5.1); Protein, Total 6.3 g/dL (6.0-8.3); Sodium 139 mmol/L (136-145)
[2024-04-09] MEDS ORDERED: methylPREDNISolone Sod Succ 40 MG VIAL ONE (00:15)
[2024-04-09] MEDS ORDERED: diphenhydrAMINE 50 MG/ML VIAL ONE (00:15)
[2024-04-09] MEDS ORDERED: Famotidine/PF 20 mg/2ml Vial ONE (00:16)
[2024-04-09] MEDS ORDERED: Acetaminophen 500 MG TAB ONE (02:50)
[2024-04-09] MEDS ORDERED: Ketorolac Tromethamine 30 MG (1 mL) VIAL ONE (02:50)
[2024-04-09] MEDS ORDERED: Morphine 4 MG/ML VIAL ONE (02:51)
[2024-04-09] MEDS ORDERED: Ondansetron PF 4 MG/2 ML Vial ONE (03:12)
[2024-04-09 04:27] LABS: Bacteria/HPF None Seen HPF (None Seen); Bilirubin Negative (Negative); Blood, Urine Negative (Negative); CAUTI Indications for Culture Pelvic or flank pain; Clarity Clear (Clear); Glucose, Urine (Dipstick) Normal (Negative); Ketone, Urine Negative (Negative); Leukocyte Negative Leu/uL (Negative); Nitrite Negative (Negative); Protein, Urine (Dipstick) Negative (Neg-Trace); RBC/HPF 0-3 HPF (0-3); Specific Gravity, Urine 1.046 (1.002-1.036); Squamous Epithelial None Seen HPF (0-3); Urobilinogen Normal mg/dL (Less than 2); WBC/HPF 0-3 HPF (0-3)
[2024-04-09 04:29] LABS: Urine Culture Reflex No No
== END 2024-04-09 04:25 | disposition home or self-care (01) ==
LOC: ERS 22:33
DX: R10.32 Left lower quadrant pain (principal); I11.0 Hypertensive heart disease with heart failure; I50.9 Heart failure, unspecified
CPT/HCPCS: 36415; 71045; 80053; 83605; 83690; 85025; J2272; J2405

== ENCOUNTER 2024-04-29 15:01 | Inpatient (IN) | payer MEDICARE ==
[2024-04-29] MEDS: Sodium Chloride 0.9% 1,000 ML IV SCH (17:07)
[2024-04-29 17:13] VITALS: BMI 28.1
[2024-04-29] MEDS: Dicyclomine 10 MG CAP PO PRN (18:19)
[2024-04-29] MEDS: methylPREDNISolone Sod Succ 40 MG VIAL IVP SCH (20:19)
[2024-04-29] MEDS: Amlodipine 5 MG TAB PO SCH (20:20)
[2024-04-29] MEDS: Atorvastatin Calcium 40 MG TAB PO SCH (20:20)
[2024-04-29] MEDS: Mycophenolate 250 MG CAP PO SCH (20:20)
[2024-04-29] MEDS: OXcarbazepine 300 MG TAB PO SCH (20:21)
[2024-04-29] MEDS: Icosapent Ethyl 1 GM CAPSULE PO SCH (20:21)
[2024-04-29] MEDS: Tacrolimus 1 MG CAP PO SCH (20:21)
[2024-04-30 05:40] LABS: #Basophils 0.04 10x3/uL (0.0-0.2); #Eosinophils Less than 0.03 10x3/uL (0.0-0.7); %Basophils 0.7 % (0.0-1.0); %Eosinophils 0.4 % (0.0-10.0); %Lymphocytes 17.6 % (21.0-51.0); %Monocytes 6.1 % (0.0-10.0); %Neutrophils 74.5 % (42.0-75.0); Hemoglobin 14.9 g/dL (14.0-18.0); Mean Corpuscular HGB CONC 33.9 g/dL (32.0-36.0); Mean Corpuscular Hemoglobin 29.8 pg (27.0-31.0); Platelet Count 251 10x3/uL (130-400); RBC Distribution Width 14.9 % (11.5-14.5)
[2024-04-30 06:03] LABS: Anion Gap 12 mmol/L (10-20); BUN (Urea Nitrogen) 8 mg/dL (8.4-25.7); Calc. Creatinine Clearance 127 mL/min (70-130); Calcium 9.3 mg/dL (7.8-10.44); Carbon Dioxide 24 mmol/L (22-29); Chloride 103 mmol/L (98-107); Estimated GFR 106; Glucose 119 mg/dL (70-105); Potassium 4.3 mmol/L (3.5-5.1); Sodium 135 mmol/L (136-145)
[2024-04-30 06:06] LABS: CRP,High Sensitivity (Inhouse) 0.43 mg/dL (< or = 0.5); Magnesium 1.6 mg/dL (1.6-2.6)
[2024-04-30] MEDS ORDERED: PROPOFOL 80 ML ONE (10:39)
[2024-04-30] MEDS ORDERED: ePHEDrine Sulfate 50 MG/10 ML VIAL ONE (10:40)
[2024-04-30] MEDS ORDERED: Lidocaine 1% PF 5 ML VIAL ONE (10:40)
[2024-04-30] MEDS: Acetaminophen 325 MG TAB PO PRN (12:10)
[2024-04-30] MEDS: FLUoxetine HCl 10 MG CAP PO SCH (12:10)
[2024-04-30] MEDS: Allopurinol 100 MG TAB PO SCH (12:11)
[2024-04-30] MEDS: Budesonide DR 3 MG CAP PO SCH (12:12)
[2024-04-30] MEDS: Aspirin 81 mg Enteric Coated Tablet PO SCH (12:26)
[2024-04-30 13:12] LABS: Campy jejuni + coli by PCR Negative (Negative); STEC Shiga Toxin 1+2 Negative (Negative); Salmonella spp. by PCR Negative (Negative); Shigella spp + EIEC by PCR Negative (Negative)
[2024-05-01 06:21] LABS: #Basophils Less than 0.03 10x3/uL (0.0-0.2); #Eosinophils Less than 0.03 10x3/uL (0.0-0.7); %Basophils 0.1 % (0.0-1.0); %Eosinophils 0.1 % (0.0-10.0); %Monocytes 7.2 % (0.0-10.0); %Neutrophils 78.1 % (42.0-75.0); Hematocrit 43.6 % (42.0-52.0); Hemoglobin 14.9 g/dL (14.0-18.0); Mean Corpuscular HGB CONC 34.2 g/dL (32.0-36.0); Mean Corpuscular Hemoglobin 29.4 pg (27.0-31.0); Mean Corpuscular Volume 86.2 fL (78.0-98.0); Mean Platelet Volume 9.4 fL (7.4-10.4); Platelet Count 272 10x3/uL (130-400); RBC Distribution Width 14.6 % (11.5-14.5); Red Blood Cell (RBC) Count 5.06 mill/uL (4.70-6.10)
[2024-05-01 06:34] LABS: ALT (SGPT) 17 U/L (8-55); AST (SGOT) 11 U/L (5-34); Albumin 3.3 g/dL (3.5-5.0); Alkaline Phosphatase 85 U/L (40-110); Anion Gap 13 mmol/L (10-20); BUN (Urea Nitrogen) 6 mg/dL (8.4-25.7); Bilirubin, Total 0.5 mg/dL (0.2-1.2); Calc. Creatinine Clearance 125 mL/min (70-130); Calcium 9.3 mg/dL (7.8-10.44); Carbon Dioxide 24 mmol/L (22-29); Chloride 104 mmol/L (98-107); Estimated GFR 105; Globulin 3.2 g/dL (2.4-3.5); Glucose 125 mg/dL (70-105); Magnesium 1.6 mg/dL (1.6-2.6); Potassium 3.5 mmol/L (3.5-5.1); Protein, Total 6.5 g/dL (6.0-8.3); Sodium 137 mmol/L (136-145)
[2024-05-01 08:25] VITALS: BP 136/86; TEMP 97.4
[2024-05-02 23:07] LABS: Adenovirus F 40-41 Not Detected (Not Detected); Astrovirus Not Detected (Not Detected); C. difficile toxin A+B Not Detected (Not Detected); Campylobacter by PCR Not Detected (Not Detected); Cryptosporidium Not Detected (Not Detected); Cyclospora cayetanensis Not Detected (Not Detected); Entamoeba histolytica Not Detected (Not Detected); Enteroaggregative E. coli Not Detected (Not Detected); Enteropathogenic E. coli Not Detected (Not Detected); Enterotoxigenic E. coli Not Detected (Not Detected); Giardia lamblia Not Detected (Not Detected); Norovirus GI-GII Not Detected (Not Detected); Plesiomonas shigelloides Not Detected (Not Detected); Rotavirus A Not Detected (Not Detected); Salmonella Not Detected (Not Detected); Sapovirus Not Detected (Not Detected); Shiga-toxin-producing E coli Not Detected (Not Detected); Shigella/Enteroinvasive E coli Not Detected (Not Detected); Vibrio Not Detected (Not Detected); Vibrio cholerae Not Detected (Not Detected); Yersinia enterocolitica Not Detected (Not Detected)
[2024-05-03 09:13] LABS: CMV DNA-PCR Test Negative (Negative)
== END 2024-05-01 11:32 | disposition home or self-care (01) | DRG 386 ==
LOC: T4-B 15:54 → OBSVTOIN 17:12
PROVIDERS: ADMIT Internal Medicine; ATTEND Internal Medicine
PROC: 0DBN8ZX Excision of Sigmoid Colon, Via Natural or Artificial Opening Endoscopic, Diagnostic (ICD-10-PCS; principal; 2024-04-30)
DX: K50.90 Crohn's disease, unspecified, without complications (principal); I50.22 Chronic systolic (congestive) heart failure; Z94.1 Heart transplant status; K52.9 Noninfective gastroenteritis and colitis, unspecified; Z91.041 Radiographic dye allergy status; Z88.2 Allergy status to sulfonamides; E78.5 Hyperlipidemia, unspecified; K21.9 Gastro-esophageal reflux disease without esophagitis; F41.9 Anxiety disorder, unspecified; F32.A Depression, unspecified; I11.0 Hypertensive heart disease with heart failure; Z98.890 Other specified postprocedural states
CPT/HCPCS: 36415; 80048; 80053; 83605; 83630; 83690; 83735; 85025; 86141; 86645; 87324; 87449; 87497; 87505; 87507; 87798; 88305; 96361; 96374; 96375; 96376; J2272; J2405; J2704; J2919; J7030; J7507; J7517